=== PATIENT | male | born 1980 ===

== ENCOUNTER 2017-05-04 14:03 | Emergency (ER) | payer MEDICAID, OTHER ==
--- NOTE | 2017-05-04 14:27 | ED PDOC ---
Lower Extremity Pain/Injury Time Seen by Provider: 05/04/17 14:16 Chief Complaint (Nursing): Lower Extremity Problem/Injury Chief Complaint (Provider): left foot pain History Per: Patient History/Exam Limitations: no limitations Additional Complaint(s): 36yo M in ED for eval of left foot pain, swelling redness, warmth x 5days wroseing after getting a bug bite, itching an trying to squeeze lesion. noted ever today and some chills no nausea of vomiting. Past Medical History Reviewed: Historical Data, Nursing Documentation, Vital Signs Vital Signs: Last Vital Signs Temp 98.1 F 05/04/17 14:09 Pulse 119 H 05/04/17 14:09 Resp 19 05/04/17 14:09 BP 162/97 H 05/04/17 14:09 Pulse Ox 100 05/04/17 14:09 - Medical History PMH: No Chronic Diseases - Family History Family History: States: No Known Family Hx - Home Medications Home Medications: Ambulatory Orders Medication Instructions Recorded Cephalexin [cephalexin] 500 mg PO BID #20 cap 05/04/17 Clindamycin [Cleocin] 300 mg PO TID #30 cap 05/04/17 - Allergies Allergies/Adverse Reactions: Allergies Allergy/AdvReac Type Severity Reaction Status Date / Time No Known Allergies Allergy Verified 05/04/17 14:06 Review of Systems ROS Statement: Except As Marked, All Systems Reviewed And Found Negative Musculoskeletal: Positive for: Foot Pain Physical Exam - Reviewed Nursing Documentation Reviewed: Yes Vital Signs Reviewed: Yes - Physical Exam Appears: Positive for: Non-toxic, No Acute Distress Cardiovascular/Chest: Positive for: Regular Rate, Rhythm Respiratory: Positive for: CNT, Normal Breath Sounds Extremity: Positive for: Other (left foot: swelling to dorsum of foot, ertyhema warmth, streaking no pus drainage tenderness on palpaition. nuerovasc intact) Neurologic/Psych: Positive for: Alert, Oriented - Laboratory Results Result Diagrams: 05/04/17 14:36 05/04/17 14:36 - ECG O2 Sat by Pulse Oximetry: 100 - Radiology X-Ray: Interpreted by Ut X-Ray Interpretation: No Acute Disease - Progress ED Course And Treament: impression: cellulites will get labs, rocephin IV 1 gm , xray. 14:51 PT with elevated WBC, tachycardia-will order lactic acid/blood cx Medical Decision Making Medical Decision Making: Pt pain improved, CBC elevated however lactic acid is normal. HR and BP improved however temp increased will be given Tylenol. Pt does meet SERS criteria however pt looks well for d./cat this time with outpt f./u with pmd torodol given for pain. given Rocephin IV 1gm and will be d/c with clindamyin and keflex area is marked advised to have it monitored in 3 days if worsened to return to ED. or if with fever chills. advised to keep foot elevated allow better circulation. Disposition - Clinical Impression Clinical Impression: Cellulitis - Patient ED Disposition Is Patient to be Admitted: No Counseled Patient/Family Regarding: Studies Performed, Diagnosis, Need For Followup, Rx Given - Disposition Referrals: [facility] [Outside] Disposition: Routine/Home Disposition Time: 16:34 Condition: STABLE Prescriptions: Cephalexin [cephalexin] 500 mg PO BID #20 cap Clindamycin [Cleocin] 300 mg PO TID #30 cap Instructions: Cellulitis (ED) Forms: [facility] ED School/Work Excuse
[2017-05-04] MEDS ORDERED: cefTRIAXone (Rocephin) 1 gm Inj ONE (14:43)
[2017-05-04 14:45] LABS: BASO # 0.1 K/uL (0.0-0.2); BASO % 0.6 % (0.0-2.0); EOS # 0.1 K/uL (0.0-0.7); EOS % 0.7 % (0.0-4.0); HEMOGLOBIN 12.3 g/dL (12.0-18.0); LYMPH # 1.1 K/uL (1.0-4.3); LYMPH % 6.4 % (20.0-40.0); MEAN CELL VOLUME 92.5 fl (80.0-94.0); MEAN CORPUSCULAR HEMOGLOBIN 30.7 pg (27.0-31.0); MEAN CORPUSCULAR HGB CONC 33.2 g/dL (33.0-37.0); MEAN PLATELET VOLUME 7.8 fl (7.2-11.7); MONO # 1.1 K/uL (0.0-0.8); MONO % 6.5 % (0.0-10.0); NEUT # 14.1 K/uL (1.8-7.0); NEUT % 85.8 % (50.0-75.0); NRBC % 0.1 % (0.0-0.0); PLATELET COUNT 271 K/uL (130-400); RBC 4.02 Mil/uL (4.40-5.90); RED CELL DISTRIBUTION WIDTH 13.5 % (11.5-14.5); WHITE BLOOD COUNT 16.4 K/uL (4.8-10.8)
--- NOTE | 2017-05-04 14:50 | RAD ---
PROCEDURE: Left Foot Radiographs. HISTORY: foot swelling COMPARISON: None available. FINDINGS: BONES: No acute displaced fracture. JOINTS: No dislocation. SOFT TISSUES: Soft tissue swelling. No evidence of radiopaque foreign body. OTHER FINDINGS: None. IMPRESSION: Diffuse soft tissue swelling. No acute displaced fracture, dislocation, or significant joint effusion identified. If symptoms persist, or if there is continued clinical concern, x-ray follow-up in 7-10 days should be considered.
[2017-05-04 15:10] LABS: ALB/GLOB RATIO 1.2 (1.0-2.1); ALBUMIN 4.5 g/dL (3.5-5.0); ALT/SGPT 50 U/L (21-72); AST/SGOT 31 U/L (17-59); BLOOD UREA NITROGEN 17 mg/dl (9-20); CALCIUM 9.8 mg/dL (8.4-10.2); GFR AFRICAN-AMERICAN > 60; GFR NON-AFRICAN AMERICAN > 60
[2017-05-04 16:35] VITALS: BP 141/85; RESP 18
[2017-05-04 16:36] VITALS: O2SAT 100
[2017-05-04 16:52] LABS: BANDS 1 % (0-2); EOSINOPHIL 1 % (0-7); LYMPHOCYTE 7 % (20-50); MONOCYTE 7 % (0-10); NEUTROPHIL 84 % (42-75); PLATELET ESTIMATE NORMAL (NORMAL); TOTAL CELLS COUNTED 100
[2017-05-04 18:51] VITALS: PULSE 89; TEMP 98.5
== END 2017-05-04 18:50 | disposition home or self-care (01) ==
LOC: H.ER 14:03
DX: D72.829 Elevated white blood cell count, unspecified (principal); L03.115 Cellulitis of right lower limb
CPT/HCPCS: 73630; 80053; 83605; 85025; 87040; 96365; 96375; 99284; J0696; J1885

== ENCOUNTER 2017-05-07 05:48 | Inpatient (IN) | payer MEDICAID, OTHER ==
[2017-05-07] MEDS ORDERED: Piperacillin/Tazobact 3.375 GM in Sodium Chloride 0.9% 100 ML IV STA (06:29)
[2017-05-07] MEDS ORDERED: Piperacillin/Tazobact 3.375 gm Inj IVPB ONE (06:39)
[2017-05-07 06:42] LABS: BASO % 0.1 % (0.0-2.0); EOS # 0.5 K/uL (0.0-0.7); EOS % 3.9 % (0.0-4.0); HEMOGLOBIN 12.3 g/dL (12.0-18.0); LYMPH # 0.7 K/uL (1.0-4.3); LYMPH % 5.4 % (20.0-40.0); MEAN CELL VOLUME 92.1 fl (80.0-94.0); MEAN CORPUSCULAR HEMOGLOBIN 30.6 pg (27.0-31.0); MEAN CORPUSCULAR HGB CONC 33.2 g/dL (33.0-37.0); MEAN PLATELET VOLUME 7.8 fl (7.2-11.7); MONO # 0.8 K/uL (0.0-0.8); MONO % 6.2 % (0.0-10.0); NEUT # 10.6 K/uL (1.8-7.0); NEUT % 84.4 % (50.0-75.0); RBC 4.03 Mil/uL (4.40-5.90); RED CELL DISTRIBUTION WIDTH 13.5 % (11.5-14.5); WHITE BLOOD COUNT 12.6 K/uL (4.8-10.8)
--- NOTE | 2017-05-07 06:54 | ED PDOC ---
HPI: Wound Care - HPI Time Seen by Provider: 05/07/17 06:10 Chief Complaint (Nursing): Wound Check Chief Complaint (Provider): swelling and redness, left foot History Per: Patient History Of Present Illness: Mukesh is a 36 y/o male, with no past medical history who presents to the ED with complaints of left foot swelling and pain associated with redness. He was seen yesterday in ED and discharged on Kefflex and Clindamycin. Patient reports worsening symptoms, and has developed fever and chills, with swelling and redness increasing up the left leg. PMD: Unknown Exam Limitations: no limitations Onset/Duration Of Symptoms: Days (x 3) Current Symptoms Are (Timing): Still Present Past Medical History Reviewed: Historical Data, Nursing Documentation, Vital Signs Vital Signs: Last Vital Signs Temp 100.0 F H 05/07/17 06:07 Pulse 100 H 05/07/17 06:07 Resp 16 05/07/17 06:07 BP 142/70 05/07/17 06:07 Pulse Ox 98 05/07/17 06:07 - Medical History PMH: No Chronic Diseases - Surgical History Surgical History: No Surg Hx - Family History Family History: States: Unknown Family Hx - Social History Current smoker - smoking cessation education provided: No Alcohol: None Drugs: Denies - Home Medications Home Medications: Ambulatory Orders Medication Instructions Recorded Cephalexin [cephalexin] 500 mg PO BID #20 cap 05/04/17 Clindamycin [Cleocin] 300 mg PO TID #30 cap 05/04/17 - Allergies Allergies/Adverse Reactions: Allergies Allergy/AdvReac Type Severity Reaction Status Date / Time No Known Allergies Allergy Verified 05/04/17 14:06 Review of Systems ROS Statement: Except As Marked, All Systems Reviewed And Found Negative Constitutional: Positive for: Fever, Chills Musculoskeletal: Positive for: Foot Pain (Left foot) Skin: Positive for: Other (Swelling and redness of the left foot, spreading up leg) Physical Exam - Reviewed Nursing Documentation Reviewed: Yes Vital Signs Reviewed: Yes - Physical Exam Appears: Positive for: Non-toxic, No Acute Distress Head Exam: Positive for: ATRAUMATIC, NORMAL INSPECTION, NORMOCEPHALIC Skin: Positive for: Warm, Dry Eye Exam: Positive for: EOMI, Normal appearance, PERRL ENT: Positive for: Normal ENT Inspection Neck: Positive for: Normal, Painless ROM, Supple Cardiovascular/Chest: Positive for: Regular Rate, Rhythm. Negative for: Murmur Respiratory: Positive for: Normal Breath Sounds. Negative for: Accessory Muscle Use, Respiratory Distress Gastrointestinal/Abdominal: Positive for: Normal Exam, Soft. Negative for: Tenderness Back: Positive for: Normal Inspection. Negative for: Vertebral Tenderness Extremity: Positive for: Pedal Edema (Left foot), Swelling (Left foot is erythematous the dorsum, edematous, warm to touch, and indurated. Small vesicular lesion to the left just above the 3rd metatarsal surface. No drainage. ) Neurologic/Psych: Positive for: Alert, Oriented - Laboratory Results Result Diagrams: 05/07/17 06:39 - ECG O2 Sat by Pulse Oximetry: 98 (RA) Pulse Ox Interpretation: Normal Medical Decision Making Medical Decision Making: Time: 06:29 Initial Impression: 36 y/o male with left foot cellulitis and failure of outpatient treatment Initial Plan: --Labs --IV Vancomycin --Toradol 10 mg IV --Zosyn IV --Patient will be admitted as inpatient for further treatment of left foot cellulitis. Patient was discussed with Dr. Booker, Family Practice resident. Scribe Attestation: Documented by Cici Mota, acting as a scribe for Don Burton MD Provider Scribe Attestation: All medical record entries made by the Scribe were at my direction and personally dictated by me. I have reviewed the chart and agree that the record accurately reflects my personal performance of the history, physical exam, medical decision making, and the department course for this patient. I have also personally directed, reviewed, and agree with the discharge instructions and disposition. Disposition - Clinical Impression Clinical Impression: Cellulitis of left foot - Patient ED Disposition Is Patient to be Admitted: Yes Discussed With : Shoaib Booker - Disposition Disposition Time: 06:00 Condition: FAIR - Pt Status Changed To: Hospital Disposition Of: Inpatient - Admit Certification Admit to Inpatient:: After my assessment, the patient will require hospitalization for at least two midnights. This is because of the severity of symptoms shown, intensity of services needed, and/or the medical risk in this patient being treated as an outpatient.
[2017-05-07 06:59] LABS: ALB/GLOB RATIO 1.3 (1.0-2.1); ALBUMIN 4.3 g/dL (3.5-5.0); ALT/SGPT 184 U/L (21-72); AST/SGOT 91 U/L (17-59); BLOOD UREA NITROGEN 22 mg/dl (9-20); CALCIUM 9.5 mg/dL (8.4-10.2); GFR AFRICAN-AMERICAN > 60; GFR NON-AFRICAN AMERICAN > 60
[2017-05-07] MEDS ORDERED: Vancomycin 1 g Inj ONE (07:58)
[2017-05-07] MEDS ORDERED: Piperacill/Tazo 3.375gm in Dex 3.375 GM/50 ML BAG IVPB SCH (09:00)
--- NOTE | 2017-05-07 09:59 | CP.PCM.HP ---
History of Present Illness - History of Present Illness History of Present Illness: 36 yr old M with no significant PMHx presented to ER with worsening pain, swelling, and erythema to his L foot. Reports all symptoms began 6 days ago after he was bitten by a mosquito. He came to the ED 3 days ago and was treated for cellulitis with 1g of IV Cetriaxone and was discharge home with PO Clindamycin and Cephalexin. His symptoms continued to worsen despite compliance with PO antibiotics. Left foot x-ray was negative. Today, his pain is 10/10 with increased swelling and warmth. Pt also reports fever and chills with a decreased appetite. Denies abd pain, wound drainage, n/v/d. PMHx: Denies Surgical Hx: Appendectomy Social Hx: Admits to EtOH occasionally, denies smoking and illicit drugs. Lives at home with his Mother on the first floor. 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 Exercises 2x a week. FHx: Mother-none, Father-none, pt is an only child. Allergies: NKDA Medications: PO Clindamycin and Cephalexin ED Course: -VS: T-100.0F, HR-100, RR-16, BP-142/70, Pulse Ox-98 -CBC: WBC-12.6, rest wnl -Chem: BUN 22, AST 91, ALT, 184, rest wnl -Blood Cx Ordered -IV Vancomycin and IV Zosyn once, IV Toradol 10mg for pain Present on Admission - Present on Admission Any Indicators Present on Admission: No History of DVT/PE: No History of Uncontrolled Diabetes: No Urinary Catheter: No Decubitus Ulcer Present: No Review of Systems - Review of Systems All systems: reviewed and no additional remarkable complaints except (except for what is mentioned in the HPI) Past Patient History - Infectious Disease Hx of Infectious Diseases: None - Past Social History Smoking Status: Never Smoked - CARDIAC Hx Cardiac Disorders: No - PULMONARY Hx Respiratory Disorders: No - NEUROLOGICAL Hx Neurological Disorder: No - HEENT Hx HEENT Problems: No - RENAL Hx Chronic Kidney Disease: No - ENDOCRINE/METABOLIC Hx Endocrine Disorders: No - HEMATOLOGICAL/ONCOLOGICAL Hx Blood Disorders: No - INTEGUMENTARY Hx Dermatological Problems: No - MUSCULOSKELETAL/RHEUMATOLOGICAL Hx Musculoskeletal Disorders: No - GENITOURINARY/GYNECOLOGICAL Hx Genitourinary Disorders: No - PSYCHIATRIC Hx Psychophysiologic Disorder: No - SURGICAL HISTORY Hx Surgeries: Yes Hx Angioplasty: No Hx Appendectomy: Yes - ANESTHESIA Hx Anesthesia: Yes Hx Anesthesia Reactions: No Meds Allergies/Adverse Reactions: Allergies Allergy/AdvReac Type Severity Reaction Status Date / Time No Known Allergies Allergy Verified 05/04/17 14:06 Physical Exam - Constitutional Appears: No Acute Distress - Head Exam Head Exam: ATRAUMATIC, NORMOCEPHALIC - Eye Exam Eye Exam: EOMI - ENT Exam ENT Exam: Mucous Membranes Moist - Neck Exam Neck exam: Positive for: Full Rom. Negative for: Lymphadenopathy - Respiratory Exam Respiratory Exam: Clear to Auscultation Bilateral, NORMAL BREATHING PATTERN - Cardiovascular Exam Cardiovascular Exam: REGULAR RHYTHM, +S1, +S2 - GI/Abdominal Exam GI & Abdominal Exam: Normal Bowel Sounds, Soft (obese). absent: Tenderness - Extremities Exam Extremities exam: Positive for: tenderness (to palpation and passive movement and significant erythema of left foot along dorsal aspect from 4th digit base and extending proximally up to ankle, pinpoint lesion at dorsal base of 4th digit with eschar), pedal pulses present Additional comments: sensation normal and equal bilaterally - Back Exam Back exam: FULL ROM. absent: CVA tenderness (L), CVA tenderness (R) - Neurological Exam Neurological exam: Alert, CN II-XII Intact - Psychiatric Exam Psychiatric exam: Normal Affect, Normal Mood - Skin Skin Exam: Dry, Intact Results - Vital Signs Recent Vital Signs: Last Vital Signs Temp 98.5 F 05/07/17 09:16 Pulse 95 H 05/07/17 09:16 Resp 16 05/07/17 09:16 BP 135/77 05/07/17 09:16 Pulse Ox 98 05/07/17 09:16 - Labs Result Diagrams: 05/07/17 06:39 05/07/17 06:39 Labs: Laboratory Results - last 24 hr 05/07/17 05/07/17 05/07/17 06:39 06:39 06:39 WBC 12.6 H RBC 4.03 L Hgb 12.3 Hct 37.1 MCV 92.1 MCH 30.6 MCHC 33.2 RDW 13.5 Plt Count 290 MPV 7.8 Neut % (Auto) 84.4 H Lymph % (Auto) 5.4 L Kemper % (Auto) 6.2 Eos % (Auto) 3.9 Baso % (Auto) 0.1 Neut # 10.6 H Lymph # 0.7 L Kemper # 0.8 Eos # 0.5 Baso # 0.0 Sodium 140 Potassium 3.9 Chloride 105 Carbon Dioxide 24 Anion Gap 15 BUN 22 H Creatinine 1.1 Est GFR ( Amer) > 60 Est GFR (Non-Af Amer) > 60 Random Glucose 103 Lactic Acid 0.7 Calcium 9.5 Total Bilirubin 0.8 AST 91 H D ALT 184 H D Alkaline Phosphatase 114 Total Protein 7.7 Albumin 4.3 Globulin 3.4 Albumin/Globulin Ratio 1.3 Assessment & Plan - Assessment and Plan (Free Text) Assessment: 36 yr old M admitted for worsening LLE cellulitis s/p failed outpatient PO antibiotics, with no other significant PMHx. Podiatry and ID are on board. I&D performed, Wound culture results are pending. LLE Cellulitis -worsened s/p failed PO antibiotics as outpatient -afebrile, leukocytosis of 12.6 -Podiatry consult appreciated-Dr. Calderon: I&D performed, wound culture sent -Day 1 of Vancomycin 1gm IV Q12H and Zosyn 3.375gm IV Q12H -pain management Tylenol (mild pain), Toradol (moderate), Morphine (severe) -regular diet -f/u CBC, Lyme disease labs, BCx, Wound Cx Elevated LFT's -acute -f/u LFT's, Utox DVT prophylaxis -Lovenox 40mg SC QD - Date & Time Date: 05/07/17 Time: 09:00
[2017-05-07 10:58] LABS: INR 1.2 (0.9-1.2); PROTHROMBIN TIME 13.5 Seconds (9.8-13.1)
--- NOTE | 2017-05-07 11:09 | US ---
HISTORY: r/o DVT . PRIORS: None. FINDINGS: 2-D, color and duplex Doppler analysis of the lower extremity venous circulation using routine protocol from the femoral veins through the popliteal veins. Venous compressibility: Normal. Flow and augmentation patterns: Normal. Visualized veins upper third of calf: Normal. Kapoor cyst: None. IMPRESSION: No sonographic or Doppler evidence for DVT in left lower extremity.
[2017-05-07] MEDS: Enoxaparin 40 mg Syringe SC SCH (11:50)
--- NOTE | 2017-05-07 12:39 | CP.PCM.CON ---
History of Present Illness - History of Present Illness History of Present Illness: 36 y/o male, with no past medical history who presents to the ED with complaints of left foot swelling and pain associated with redness. He was seen yesterday in ED and discharged on Kefflex and Clindamycin. Patient reports worsening symptoms, and has developed fever and chills, with swelling and redness increasing up the left leg. Could not get appointment at podiatry clinic Review of Systems - Review of Systems All systems: reviewed and no additional remarkable complaints except - Constitutional Constitutional: Chills, Fever - EENT Eyes: absent: As Per HPI, Blind Spots, Blurred Vision, Change in Vision, Decreased Night Vision, Diplopia, Discharge, Dry Eye, Exophthalmos, Floaters, Irritation, Itchy Eyes, Loss of Peripheral Vision, Pain, Photophobia, Requires Corrective Lenses, Sees Flashes, Spots in Vision, Tunnel Vision, Other Visual Disturbances, Loss of Vision, Other Ears: absent: As Per HPI, Decreased Hearing, Ear Discharge, Ear Pain, Tinnitus, Abnormal Hearing, Disequilibrium, Dizziness, Other Nose/Mouth/Throat: absent: As Per HPI, Epistaxis, Nasal Congestion, Nasal Discharge, Nasal Obstruction, Nasal Trauma, Nose Pain, Post Nasal Drip, Sinus Pain, Sinus Pressure, Bleeding Gums, Change in Voice, Dental Pain, Dry Mouth, Dysphagia, Halitosis, Hoarsness, Lip Swelling, Mouth Lesions, Mouth Pain, Odynophagia, Sore Throat, Throat Swelling, Tongue Swelling, Facial Pain, Neck Pain, Neck Mass, Other - Cardiovascular Cardiovascular: absent: As Per HPI, Acrocyanosis, Chest Pain, Chest Pain at Rest , Chest Pain with Activity, Claudication, Diaphoresis, Dyspnea, Dyspnea on Exertion, Edema, Irregular Heart Rhythm, Pain Radiating to Arm/Neck/Jaw, Leg Edema, Leg Ulcers, Lightheadedness, Orthopnea, Palpitations, Paroxysmal Nocturnal Dyspnea, Pedal Edema, Radiating Pain, Rapid Heart Rate, Slow Heart Rate, Syncope, Other - Respiratory Respiratory: absent: As Per HPI, Cough, Dyspnea, Hemoptysis, Dyspnea on Exertion , Wheezing, Snoring, Stridor, Pain on Inspiration, Chest Congestion, Excessive Mucous Production, Change in Mucous Color, Pain with Coughing, Other - Gastrointestinal Gastrointestinal: absent: As Per HPI, Abdominal Pain, Belching, Bloating, Change in Bowel Habits, Change in Stool Character, Coffee Ground Emesis, Constipation, Cramping, Diarrhea, Dyspepsia, Dysphagia, Early Satiety, Excessive Flatus, Fecal Incontinence, Heartburn, Hematemesis, Hematochezia, Loose Stools, Melena, Nausea, Odynophagia, Temesmus, Vomiting, Other - Genitourinary Genitourinary: absent: As Per HPI, Change in Urinary Stream, Difficulty Urinating, Dysuria, Flank Pain, Hematuria, Pyuria, Nocturia, Urinary Incontinence, Urinary Frequency, Urinary Hesitance, Urinary Urgency, Voiding Freq/Small Amts, Freq UTI, Hx Renal/Bladder Calculi, Hx /Renal Surgery, Bladder Distension, Other - Musculoskeletal Musculoskeletal: absent: As Per HPI, Abnormal Gait, Arthralgias, Atrophy, Back Pain, Deformity, Joint Swelling, Limited Range of Motion, Loss of Height, Muscle Cramps, Muscle Weakness, Myalgias, Neck Pain, Numbness, Radiating Pain into Limb, Stiffness, Tingling, Other - Integumentary Integumentary: As Per HPI, Rash, Skin Pain, Wounds - Neurological Neurological: absent: As Per HPI, Abnormal Gait, Abnormal Hearing, Abnormal Movements, Abnormal Speech, Behavioral Changes, Burning Sensations, Confusion, Convulsions, Disequilibrium, Dizziness, Numbness, Focal Weakness, Frequent Falls , Headaches, Lack of Coordination, Loss of Vision, Memory Loss, Paresthesias, Radicular Pain, Restless Legs, Sensory Deficit, Syncope, Tingling, Tremor, Vertigo, Weakness, Other Visual Disturbances, Other - Psychiatric Psychiatric: absent: As Per HPI, Abnormal Sleep Pattern, Anhedonia, Anxiety, Auditory Hallucinations, Behavioral Changes, Change in Appetite, Change in Libido, Confusion, Depression, Difficulty Concentrating, Hallucinations, Homicidal Ideation, Hopelessness, Irritability, Memory Loss, Mood Swings, Panic Attacks, Paranoia, Suicidal Ideation, Visual Hallucinations, Tactile Hallucinations, Other - Endocrine Endocrine: absent: As Per HPI, Change in Body Appearance, Change in Libido, Cold Intolorance, Deepening of Voice, Excessive Sweating, Fatigue, Flushing, Heat Intolorance, Increase in Ring/Shoe/Hat Size, Palpitations, Polydipsia, Polyphagia, Polyuria, Other - Hematologic/Lymphatic Hematologic: absent: As Per HPI, Easy Bleeding, Easy Bruising, Lymphadenopathy, Other Past Patient History - Infectious Disease Hx of Infectious Diseases: None - Past Social History Smoking Status: Never Smoked - CARDIAC Hx Cardiac Disorders: No - PULMONARY Hx Respiratory Disorders: No - NEUROLOGICAL Hx Neurological Disorder: No - HEENT Hx HEENT Problems: No - RENAL Hx Chronic Kidney Disease: No - ENDOCRINE/METABOLIC Hx Endocrine Disorders: No - HEMATOLOGICAL/ONCOLOGICAL Hx Blood Disorders: No - INTEGUMENTARY Hx Dermatological Problems: No - MUSCULOSKELETAL/RHEUMATOLOGICAL Hx Musculoskeletal Disorders: No - GENITOURINARY/GYNECOLOGICAL Hx Genitourinary Disorders: No - PSYCHIATRIC Hx Psychophysiologic Disorder: No - SURGICAL HISTORY Hx Surgeries: Yes Hx Angioplasty: No Hx Appendectomy: Yes - ANESTHESIA Hx Anesthesia: Yes Hx Anesthesia Reactions: No Meds Allergies/Adverse Reactions: Allergies Allergy/AdvReac Type Severity Reaction Status Date / Time No Known Allergies Allergy Verified 05/04/17 14:06 - Medications Medications: Current Medications Enoxaparin Sodium (Lovenox) 40 mg SC DAILY [facility] PRN Reason: Protocol Last Admin: 05/07/17 11:50 Dose: 40 mg Piperacillin Sod/Tazobactam Sod (Zosyn 3.375 Gm Iv Premix) 3.375 gm in 50 mls @ 50 mls/hr IVPB Q12 [facility] Last Admin: 05/07/17 08:22 Dose: Not Given Vancomycin HCl 1 gm/ Sodium (Chloride) 250 mls @ 166.667 mls/hr IVPB Q12 [facility] Last Admin: 05/07/17 08:27 Dose: Not Given Physical Exam - Constitutional Appears: Non-toxic, Chronically Ill - Head Exam Head Exam: NORMOCEPHALIC - Eye Exam Eye Exam: PERRL. absent: Scleral icterus - ENT Exam ENT Exam: Mucous Membranes Dry, Normal External Ear Exam - Neck Exam Neck exam: Negative for: Lymphadenopathy - Respiratory Exam Respiratory Exam: Decreased Breath Sounds, Clear to Auscultation Bilateral - Cardiovascular Exam Cardiovascular Exam: REGULAR RHYTHM, +S1, +S2 - GI/Abdominal Exam GI & Abdominal Exam: Diminished Bowel Sounds, Soft. absent: Tenderness - Rectal Exam Rectal Exam: Deferred - Exam Exam: NORMAL INSPECTION - Extremities Exam Extremities exam: Positive for: pedal edema, tenderness, pedal pulses present. Negative for: calf tenderness Additional comments: redness and swelling dorsum left foot from toes to forefoot- worse on lateral aspect - Back Exam Back exam: absent: CVA tenderness (L), CVA tenderness (R), paraspinal tenderness - Neurological Exam Neurological exam: Alert, CN II-XII Intact, Oriented x3, Reflexes Normal - Psychiatric Exam Psychiatric exam: Normal Mood - Skin Skin Exam: Dry Results - Vital Signs Recent Vital Signs: Last Vital Signs Temp 98.8 F 05/07/17 09:45 Pulse 96 H 05/07/17 09:45 Resp 18 05/07/17 09:45 BP 139/85 05/07/17 09:45 Pulse Ox 100 05/07/17 09:45 - Labs Result Diagrams: 05/07/17 06:39 05/07/17 06:39 Labs: Laboratory Results - last 24 hr 05/07/17 05/07/17 05/07/17 06:39 06:39 06:39 WBC 12.6 H RBC 4.03 L Hgb 12.3 Hct 37.1 MCV 92.1 MCH 30.6 MCHC 33.2 RDW 13.5 Plt Count 290 MPV 7.8 Neut % (Auto) 84.4 H Lymph % (Auto) 5.4 L Buchanan % (Auto) 6.2 Eos % (Auto) 3.9 Baso % (Auto) 0.1 Neut # 10.6 H Lymph # 0.7 L Buchanan # 0.8 Eos # 0.5 Baso # 0.0 PT INR APTT Sodium 140 Potassium 3.9 Chloride 105 Carbon Dioxide 24 Anion Gap 15 BUN 22 H Creatinine 1.1 Est GFR ( Amer) > 60 Est GFR (Non-Af Amer) > 60 Random Glucose 103 Lactic Acid 0.7 Calcium 9.5 Total Bilirubin 0.8 AST 91 H D ALT 184 H D Alkaline Phosphatase 114 Total Protein 7.7 Albumin 4.3 Globulin 3.4 Albumin/Globulin Ratio 1.3 05/07/17 05/07/17 09:00 10:25 WBC RBC Hgb Hct MCV MCH MCHC RDW Plt Count MPV Neut % (Auto) Lymph % (Auto) Buchanan % (Auto) Eos % (Auto) Baso % (Auto) Neut # Lymph # Buchanan # Eos # Baso # PT 13.5 H INR 1.2 APTT 32.0 Sodium Potassium Chloride Carbon Dioxide Anion Gap BUN Creatinine Est GFR ( Amer) Est GFR (Non-Af Amer) Random Glucose Lactic Acid Calcium Total Bilirubin AST ALT Alkaline Phosphatase Total Protein Albumin Globulin Albumin/Globulin Ratio Assessment & Plan (1) Failure of outpatient treatment Status: Acute (2) Failure of outpatient treatment Status: Acute (3) Cellulitis of left foot Status: Acute (4) Cellulitis Status: Acute - Assessment and Plan (Free Text) Assessment: cont iv vanco po zyvox an option if pt can get coverage may need I and d if abscess forms
--- NOTE | 2017-05-07 13:51 | CP.PCM.CON ---
History of Present Illness - History of Present Illness History of Present Illness: 36 year old male patient seen at bedside, consulted podiatry for left foot pain and redness. Patient states that on he was walking his dog and believes a mosquito bit him. Patient states that soon after he started developing pain to his left foot, and took extra strength Tylenol to alleviate the pain. Patient went to the ED 3 days ago and was discharged on Keflex and Clindamycin. Patient reports worsening pain and swelling to his foot and believes the antibiotics did not improve the problem in his foot. Patient rates the pain as 10/10 on the pain scale, and states his foot is extremely sensitive to touch. Patient admits to feeling feverish and having chills. Patient denies N /V/D/SOB. No other pedal complaints at this time. PMH: unremarkable PSH: none Meds: extra strength Tylenol All: NKDA FH: non-contributory SH: occasional ETOH Review of Systems - Review of Systems All systems: reviewed and no additional remarkable complaints except (as per HPI ) Past Patient History - Infectious Disease Hx of Infectious Diseases: None - Past Social History Smoking Status: Never Smoked - CARDIAC Hx Cardiac Disorders: No - PULMONARY Hx Respiratory Disorders: No - NEUROLOGICAL Hx Neurological Disorder: No - HEENT Hx HEENT Problems: No - RENAL Hx Chronic Kidney Disease: No - ENDOCRINE/METABOLIC Hx Endocrine Disorders: No - HEMATOLOGICAL/ONCOLOGICAL Hx Blood Disorders: No - INTEGUMENTARY Hx Dermatological Problems: No - MUSCULOSKELETAL/RHEUMATOLOGICAL Hx Musculoskeletal Disorders: No - GENITOURINARY/GYNECOLOGICAL Hx Genitourinary Disorders: No - PSYCHIATRIC Hx Psychophysiologic Disorder: No - SURGICAL HISTORY Hx Surgeries: Yes Hx Angioplasty: No Hx Appendectomy: Yes - ANESTHESIA Hx Anesthesia: Yes Hx Anesthesia Reactions: No Meds Allergies/Adverse Reactions: Allergies Allergy/AdvReac Type Severity Reaction Status Date / Time No Known Allergies Allergy Verified 05/04/17 14:06 - Medications Medications: Current Medications Enoxaparin Sodium (Lovenox) 40 mg SC DAILY [facility] PRN Reason: Protocol Last Admin: 05/07/17 11:50 Dose: 40 mg Piperacillin Sod/Tazobactam Sod (Zosyn 3.375 Gm Iv Premix) 3.375 gm in 50 mls @ 50 mls/hr IVPB Q12 [facility] Last Admin: 05/07/17 08:22 Dose: Not Given Vancomycin HCl 1 gm/ Sodium (Chloride) 250 mls @ 166.667 mls/hr IVPB Q12 [facility] Last Admin: 05/07/17 08:27 Dose: Not Given Physical Exam - Constitutional Appears: Well, Non-toxic, No Acute Distress - Extremities Exam Additional comments: Vasc: DP and PT pulses palpable 2/4 b/l. CFT <3 seconds to all digits x10. TG warm to warm to RLE, warm to hot to LLE. Increase in warmth to dorsolateral left foot and 4th digit. Neuro: Gross sensation intact. Derm: Erythema noted dorsal and lateral aspects of left foot. Red-purple discoloration noted to base of 4th digit, and area of discoloration is noted to be fluctuant. Pinpoint lesion with eschar noted to dorsal 4th digit base with surrounding hyperkeratosis. Ortho: Pain on palpation noted to dorsolateral left foot. Pain upon ROM 4th digit. - Neurological Exam Neurological exam: Alert, Oriented x3 - Psychiatric Exam Psychiatric exam: Normal Affect, Normal Mood Results - Vital Signs Recent Vital Signs: Last Vital Signs Temp 98.8 F 05/07/17 09:45 Pulse 96 H 05/07/17 09:45 Resp 18 05/07/17 09:45 BP 139/85 05/07/17 09:45 Pulse Ox 100 05/07/17 09:45 - Labs Result Diagrams: 05/07/17 06:39 05/07/17 06:39 Labs: Laboratory Results - last 24 hr 05/07/17 05/07/17 05/07/17 06:39 06:39 06:39 WBC 12.6 H RBC 4.03 L Hgb 12.3 Hct 37.1 MCV 92.1 MCH 30.6 MCHC 33.2 RDW 13.5 Plt Count 290 MPV 7.8 Neut % (Auto) 84.4 H Lymph % (Auto) 5.4 L [place] % (Auto) 6.2 Eos % (Auto) 3.9 Baso % (Auto) 0.1 Neut # 10.6 H Lymph # 0.7 L [place] # 0.8 Eos # 0.5 Baso # 0.0 PT INR APTT Sodium 140 Potassium 3.9 Chloride 105 Carbon Dioxide 24 Anion Gap 15 BUN 22 H Creatinine 1.1 Est GFR ( Amer) > 60 Est GFR (Non-Af Amer) > 60 Random Glucose 103 Lactic Acid 0.7 Calcium 9.5 Total Bilirubin 0.8 AST 91 H D ALT 184 H D Alkaline Phosphatase 114 Total Protein 7.7 Albumin 4.3 Globulin 3.4 Albumin/Globulin Ratio 1.3 05/07/17 05/07/17 09:00 10:25 WBC RBC Hgb Hct MCV MCH MCHC RDW Plt Count MPV Neut % (Auto) Lymph % (Auto) [place] % (Auto) Eos % (Auto) Baso % (Auto) Neut # Lymph # [place] # Eos # Baso # PT 13.5 H INR 1.2 APTT 32.0 Sodium Potassium Chloride Carbon Dioxide Anion Gap BUN Creatinine Est GFR ( Amer) Est GFR (Non-Af Amer) Random Glucose Lactic Acid Calcium Total Bilirubin AST ALT Alkaline Phosphatase Total Protein Albumin Globulin Albumin/Globulin Ratio Assessment & Plan - Assessment and Plan (Free Text) Assessment: 36 year old male with cellulitis and abscess secondary to bug bite Plan: Patient seen and evaluated at bedside. Discussed with attending, Dr. Calderon. Charts, labs, vitals reviewed = afebrile, WBC leukocytosis @ 12.6. Bedside I & D was performed - 5cc 1% lidocaine injected into left foot. Using a #15 blade, a 0.5 cm incision was made at pinpoint lesion. Approximtely 7cc of purulence was expressed from incision. Wound cx ordered and taken. Left foot dressed with 4x4 and kerlix. Per ID, patient to continue IV vancomycin. Continue pain mgmt per medicine. Podiatry will continue to follow while in house. - Date & Time Date: 05/07/17 Time: 17:00
[2017-05-07] MEDS ORDERED: Lidocaine 1% Inj (20ml) IJ ONE (16:11)
[2017-05-07] MEDS: Piperacill/Tazo 3.375gm in Dex 3.375 GM/50 ML BAG IVPB SCH (17:19)
[2017-05-07 22:31] LABS: HEPATITIS B SURFACE AG NEGATIVE (NEGATIVE)
[2017-05-07 22:36] LABS: HEPATITIS A IGM NEGATIVE (NEGATIVE); HEPATITIS B CORE AB NEGATIVE (NEGATIVE)
[2017-05-07 22:48] LABS: HEPATITIS C ANTIBODY NEGATIVE (NEGATIVE)
[2017-05-08 01:20] LABS: SQUAMOUS EPITHIAL < 1 /hpf (0-5); URINE BILIRUBIN NEGATIVE (NEGATIVE); URINE BLOOD NEGATIVE (NEGATIVE); URINE CLARITY CLEAR (Clear); URINE COLOR YELLOW (YELLOW); URINE GLUCOSE (UA) NEG (Normal); URINE LEUKOCYTE ESTERASE TRACE Leu/uL (Negative); URINE NITRATE NEGATIVE (NEGATIVE); URINE PROTEIN NEGATIVE (NEGATIVE); URINE UROBILINOGEN 0.2-1.0 mg/dL (0.2-1.0)
[2017-05-08 02:51] LABS: BARBITURATES, UR NEGATIVE (NEGATIVE); BENZODIAZEPINES, UR NEGATIVE (NEGATIVE); OPIATES, UR NEGATIVE (NEGATIVE); PHENCYCLIDINE, UR NEGATIVE (NEGATIVE)
[2017-05-08] MEDS: Piperacill/Tazo 3.375gm in Dex 3.375 GM/50 ML BAG IVPB SCH ×2 (06:02→18:38)
[2017-05-08 07:37] LABS: HEMOGLOBIN 11.4 g/dL (12.0-18.0); MEAN CELL VOLUME 92.2 fl (80.0-94.0); MEAN CORPUSCULAR HGB CONC 32.6 g/dL (33.0-37.0); RBC 3.79 Mil/uL (4.40-5.90); RED CELL DISTRIBUTION WIDTH 13.4 % (11.5-14.5); WHITE BLOOD COUNT 12.7 K/uL (4.8-10.8)
[2017-05-08 07:46] LABS: ALB/GLOB RATIO 1.2 (1.0-2.1); ALBUMIN 3.8 g/dL (3.5-5.0); ALT/SGPT 158 U/L (21-72); AST/SGOT 59 U/L (17-59); BLOOD UREA NITROGEN 21 mg/dl (9-20); CALCIUM 9.2 mg/dL (8.4-10.2); GFR AFRICAN-AMERICAN > 60; GFR NON-AFRICAN AMERICAN > 60
--- NOTE | 2017-05-08 08:25 | CP.PCM.PN ---
Subjective - Date & Time of Evaluation Date of Evaluation: 05/08/17 Time of Evaluation: 07:10 - Subjective Subjective: 36 year old male patient seen at bedside for left foot pain, redness, and swelling. Patient seen resting in bed comfortably, AAOx3 and NAD. Patient denies any acute events overnight. Patient reports continued pain to his left foot however decreased from yesterday. Patient states the I&D yesterday helped alleviate some pain. Patient denies any fever or chills today. Patient denies N/ V/D/SOB. No other pedal complaints at this time. Objective - Vital Signs/Intake and Output Vital Signs (last 24 hours): Temp Pulse Resp BP Pulse Ox 98.6 F 80 18 127/79 98 05/08/17 08:15 05/08/17 08:15 05/08/17 08:15 05/08/17 08:15 05/08/17 08:15 - Medications Medications: Current Medications Acetaminophen (Tylenol 325mg Tab) 650 mg PO Q6 PRN PRN Reason: Pain, Mild (1-3) Enoxaparin Sodium (Lovenox) 40 mg SC DAILY [facility] PRN Reason: Protocol Last Admin: 05/07/17 11:50 Dose: 40 mg Vancomycin HCl 1 gm/ Sodium (Chloride) 250 mls @ 166.667 mls/hr IVPB Q12 [facility] Last Admin: 05/07/17 21:38 Dose: 166.667 mls/hr Piperacillin Sod/Tazobactam Sod (Zosyn 3.375 Gm Iv Premix) 3.375 gm in 50 mls @ 50 mls/hr IVPB Q12H [facility] Last Admin: 05/08/17 06:02 Dose: 50 mls/hr Ketorolac Tromethamine (Toradol) 30 mg IVP Q6 PRN PRN Reason: Pain, moderate (4-7) Morphine Sulfate (Morphine) 2 mg IVP Q6 PRN PRN Reason: Pain, severe (8-10) - Labs Labs: 05/08/17 06:00 05/08/17 06:00 PT 13.5 Seconds (9.8-13.1) H 05/07/17 10:25 INR 1.2 (0.9-1.2) 05/07/17 10:25 APTT 32.0 Seconds (25.6-37.1) 05/07/17 09:00 - Constitutional Appears: Well, Non-toxic, No Acute Distress - Extremities Exam Additional comments: LLE focused physical exam: Vasc: DP and PT pulses palpable 2/4. CFT <3 seconds to all digits x5. TG warm to hot to LLE. Increase in warmth to dorsolateral left foot and 4th digit. Neuro: Gross sensation intact. Derm: Erythema noted dorsal and lateral aspects of left foot, resolving. Red- purple discoloration noted to base of 4th digit, and area of discoloration is noted to be fluctuant however less fluctuant than yesterday. 0.5cm incision to base of 4th digit appears to be healing well, no wound dehiscence noted. Ortho: Pain on palpation noted to dorsolateral left foot, decreased since yesterday. Pain upon ROM 4th digit. - Neurological Exam Neurological Exam: Alert, Awake, Oriented x3 - Psychiatric Exam Psychiatric exam: Normal Affect, Normal Mood Assessment and Plan - Assessment and Plan (Free Text) Assessment: 36 year old male with cellulitis and abscess secondary to bug bite Plan: Patient seen and evaluated at bedside. Discussed with attending, Dr. Calderon. Charts, labs, vitals reviewed = afebrile, WBC leukocytosis @ 12.7 (slightly increased from yesterday @ 12.6 05/07/17). F/U left foot wound culture Left foot MRI ordered Left foot dressed with 4x4 and kerlix. Per ID, patient to continue IV vancomycin. Continue pain mgmt per medicine = Tylenol, Toradol, Morphine Podiatry will continue to follow while in house.
[2017-05-08] MEDS: Enoxaparin 40 mg Syringe SC SCH (08:58)
--- NOTE | 2017-05-08 10:27 | CP.PCM.PN ---
Subjective - Date & Time of Evaluation Date of Evaluation: 05/08/17 Time of Evaluation: 07:25 - Subjective Subjective: Patient seen and examined at bedside. No acute events overnight. Reports LLE pain has mildly improved. Denies fevers, chills, nausea or headaches. Tolerating PO diet. Has normal urine and stool output. Objective - Vital Signs/Intake and Output Vital Signs (last 24 hours): Temp Pulse Resp BP Pulse Ox 98.6 F 80 18 127/79 98 05/08/17 08:15 05/08/17 08:15 05/08/17 08:15 05/08/17 08:15 05/08/17 08:15 - Medications Medications: Current Medications Acetaminophen (Tylenol 325mg Tab) 650 mg PO Q6 PRN PRN Reason: Pain, Mild (1-3) Enoxaparin Sodium (Lovenox) 40 mg SC DAILY [facility] PRN Reason: Protocol Last Admin: 05/08/17 08:58 Dose: 40 mg Vancomycin HCl 1 gm/ Sodium (Chloride) 250 mls @ 166.667 mls/hr IVPB Q12 [facility] Last Admin: 05/07/17 21:38 Dose: 166.667 mls/hr Piperacillin Sod/Tazobactam Sod (Zosyn 3.375 Gm Iv Premix) 3.375 gm in 50 mls @ 50 mls/hr IVPB Q12H [facility] Last Admin: 05/08/17 06:02 Dose: 50 mls/hr Ketorolac Tromethamine (Toradol) 30 mg IVP Q6 PRN PRN Reason: Pain, moderate (4-7) Morphine Sulfate (Morphine) 2 mg IVP Q6 PRN PRN Reason: Pain, severe (8-10) - Labs Labs: 05/08/17 06:00 05/08/17 06:00 PT 13.5 Seconds (9.8-13.1) H 05/07/17 10:25 INR 1.2 (0.9-1.2) 05/07/17 10:25 APTT 32.0 Seconds (25.6-37.1) 05/07/17 09:00 - Constitutional Appears: Non-toxic - Head Exam Head Exam: ATRAUMATIC, NORMOCEPHALIC - Eye Exam Eye Exam: EOMI - ENT Exam ENT Exam: Mucous Membranes Moist - Neck Exam Neck Exam: Full ROM. absent: Lymphadenopathy - Respiratory Exam Respiratory Exam: Clear to Ausculation Bilateral, NORMAL BREATHING PATTERN - Cardiovascular Exam Cardiovascular Exam: REGULAR RHYTHM, +S1, +S2 - GI/Abdominal Exam GI & Abdominal Exam: Soft (obese), Normal Bowel Sounds. absent: Tenderness - Extremities Exam Extremities Exam: Normal Capillary Refill, Tenderness (improved to palpation and passive movement and decreased swelling and erythema of left foot along dorsal aspect from 4th digit base and decreased extension proximally up to talus region, small incision healing well at base of 4th digit dorsally, no drainage) Additional comments: sensation normal and equal bilaterally, decreased warmth of left foot - Back Exam Back Exam: absent: CVA tenderness (L), CVA tenderness (R) - Neurological Exam Neurological Exam: Alert, Awake, CN II-XII Intact, Oriented x3 - Psychiatric Exam Psychiatric exam: Normal Affect, Normal Mood - Skin Skin Exam: Dry, Warm Assessment and Plan - Assessment and Plan (Free Text) Assessment: 36 yr old M admitted for worsening LLE cellulitis s/p failed outpatient PO antibiotics, with no other significant PMHx. Podiatry and ID are on board. I&D performed, Wound culture results are pending. Patient is improving, swelling and erythema persist but have decreased. Afebrile overnight. LLE Cellulitis -worsened s/p failed PO antibiotics as outpatient -afebrile, leukocytosis persists 12.7 -Podiatry consult appreciated-Dr. Calderon: I&D performed, wound culture sent -Day 2 of Vancomycin 1gm IV Q12H and Zosyn 3.375gm IV Q12H -Vanco trough 8.0 this AM -ID consulted-Dr. Bailey: will follow recommendations -pain management Tylenol (mild pain), Toradol (moderate), Morphine (severe) -regular diet - Lyme disease screen negative, Hep panel negative, BCx negative x 24hrs, Wound Cx rare G+ cocci:further analysis pending -f/u Left foot xray Elevated LFT -acute, improving, AST wnl, ALT 158 - monitor Cannabis use -UTox positive for cannabinoids -patient counseled against cannabinoid/drug use DVT prophylaxis -Lovenox 40mg SC QD
--- NOTE | 2017-05-08 12:24 | RAD ---
PROCEDURE: Left Foot Radiographs. HISTORY: LLE pain, cellulitis COMPARISON: None. FINDINGS: BONES: Normal. No fracture. JOINTS: Normal. SOFT TISSUES: Normal. OTHER FINDINGS: None. IMPRESSION: Normal left foot radiographs.
--- NOTE | 2017-05-08 14:33 | PQF GENQUE ---
Dr. Alejandro Bergman, Is there an associated diagnosis to go along with the following labs and V/S: WBC:12.6->12.7 left shift temperature :100->100->98.5 pulse:100->100->95->96->90 H and P: presented to ER with worsening pain, swelling, and erythema to his L foot. Reports all symptoms began 6 days ago after he was bitten by a mosquito. He came to the ED 3 days ago and was treated for cellulitis with 1g of IV Cetriaxone and was discharge home with PO Clindamycin and Cephalexin. His symptoms continued to worsen despite compliance with PO antibiotics. Left foot x -ray was negative. Today, his pain is 10/10 with increased swelling and warmth. Pt also reports fever and chills with a decreased appetite Admitted for worsening LLE cellulitis s/p failed outpatient PO antibiotics, with no other significant PMHx. Podiatry and ID are on board. I D performed, Wound culture results are pending. Impression: LLE Cellulitis -worsened s/p failed PO antibiotics as outpatient - afebrile, leukocytosis of 12.6 -Podiatry consult appreciated-Dr. Calderon: I D performed, wound culture sent - Day 1 of Vancomycin 1gm IV Q12H and Zosyn 3.375gm IV Q12H -pain management Tylenol (mild pain), Toradol (moderate), Morphine (severe) -regular diet -f/u CBC, Lyme disease labs, BCx, Wound Cx This form is a permanent part of the medical record Clarification of your documentation is requested to better reflect the severity of illness and intensity of treatment of your patient. Indicators present [] Specify: [] [] Specify: [] [] Specify: [] [] Specify: [] Location in the medical record that reflects the above clinical findings: [] Treatment Provided: [] PHYSICIAN'S RESPONSE pt has cellulitis await mri report. Based on your medical judgment of the clinical indicators outlined above please clarify the following: [] Practitioner response [] If unable to determine, please check the box, sign and date. Present On Admission (POA) Indicator: [] Present at the time of admission [] Not present at the time of admission [] Clinically Undetermined In responding to this query, please exercise your independent professional judgment. The fact that a question is asked does not imply that any particular answer is desired or expected. Thank you for your clarification on this documentation. If you have any questions please call. * Thank you, Jalyn Cabrera RN BSN ext. #[phone] MTDD
[2017-05-08] MEDS ORDERED: Gadodiamide 287 MG/ML VIAL (15ML) IV ONE (16:55)
--- NOTE | 2017-05-08 18:04 | CP.PCM.PN ---
Subjective - Date & Time of Evaluation Date of Evaluation: 05/08/17 Time of Evaluation: 08:00 - Subjective Subjective: wound c/s + staph await sensitivity Objective - Vital Signs/Intake and Output Vital Signs (last 24 hours): Temp Pulse Resp BP Pulse Ox 98.7 F 87 18 132/82 100 05/08/17 16:28 05/08/17 16:28 05/08/17 16:28 05/08/17 16:28 05/08/17 16:28 - Medications Medications: Current Medications Acetaminophen (Tylenol 325mg Tab) 650 mg PO Q6 PRN PRN Reason: Pain, Mild (1-3) Enoxaparin Sodium (Lovenox) 40 mg SC DAILY [facility] PRN Reason: Protocol Last Admin: 05/08/17 08:58 Dose: 40 mg Vancomycin HCl 1 gm/ Sodium (Chloride) 250 mls @ 166.667 mls/hr IVPB Q12 [facility] Last Admin: 05/08/17 10:47 Dose: 166.667 mls/hr Piperacillin Sod/Tazobactam Sod (Zosyn 3.375 Gm Iv Premix) 3.375 gm in 50 mls @ 50 mls/hr IVPB Q12H [facility] Last Admin: 05/08/17 06:02 Dose: 50 mls/hr Ketorolac Tromethamine (Toradol) 30 mg IVP Q6 PRN PRN Reason: Pain, moderate (4-7) Morphine Sulfate (Morphine) 2 mg IVP Q6 PRN PRN Reason: Pain, severe (8-10) - Labs Labs: 05/08/17 06:00 05/08/17 06:00 PT 13.5 Seconds (9.8-13.1) H 05/07/17 10:25 INR 1.2 (0.9-1.2) 05/07/17 10:25 APTT 32.0 Seconds (25.6-37.1) 05/07/17 09:00 Assessment and Plan (1) Failure of outpatient treatment Status: Acute (2) Failure of outpatient treatment Status: Acute (3) Cellulitis of left foot Status: Acute (4) Cellulitis Status: Acute
[2017-05-09] MEDS: Piperacill/Tazo 3.375gm in Dex 3.375 GM/50 ML BAG IVPB SCH (05:52)
--- NOTE | 2017-05-09 07:32 | CP.PCM.PN ---
Subjective - Date & Time of Evaluation Date of Evaluation: 05/09/17 Time of Evaluation: 06:15 - Subjective Subjective: 36 year old male patient seen at bedside for left foot pain, redness, and swelling. Patient seen sleeping in bed comfortably, AAOx3 and NAD. Patient denies any acute events overnight. Patient reports that he was walking around more yesterday so his left foot is sore, but admits to decreased pain and pressure. Patient denies any fever or chills today. Patient denies N/V/D/SOB. No other pedal complaints at this time. Objective - Vital Signs/Intake and Output Vital Signs (last 24 hours): Temp Pulse Resp BP Pulse Ox 98.7 F 80 18 140/90 98 05/09/17 00:12 05/09/17 00:12 05/09/17 00:12 05/09/17 00:12 05/09/17 00:12 - Medications Medications: Current Medications Acetaminophen (Tylenol 325mg Tab) 650 mg PO Q6 PRN PRN Reason: Pain, Mild (1-3) Enoxaparin Sodium (Lovenox) 40 mg SC DAILY [facility]NE[facility] PRN Reason: Protocol Last Admin: 05/08/17 08:58 Dose: 40 mg Vancomycin HCl 1 gm/ Sodium (Chloride) 250 mls @ 166.667 mls/hr IVPB Q12 [facility] Last Admin: 05/08/17 21:21 Dose: 166.667 mls/hr Piperacillin Sod/Tazobactam Sod (Zosyn 3.375 Gm Iv Premix) 3.375 gm in 50 mls @ 50 mls/hr IVPB Q12H [facility] Last Admin: 05/09/17 05:52 Dose: 50 mls/hr Ketorolac Tromethamine (Toradol) 30 mg IVP Q6 PRN PRN Reason: Pain, moderate (4-7) Morphine Sulfate (Morphine) 2 mg IVP Q6 PRN PRN Reason: Pain, severe (8-10) - Labs Labs: 05/08/17 06:00 05/08/17 06:00 PT 13.5 Seconds (9.8-13.1) H 05/07/17 10:25 INR 1.2 (0.9-1.2) 05/07/17 10:25 APTT 32.0 Seconds (25.6-37.1) 05/07/17 09:00 - Constitutional Appears: Well, Non-toxic, No Acute Distress - Extremities Exam Additional comments: LLE focused physical exam: Vasc: DP and PT pulses palpable 2/4. CFT <3 seconds to all digits x5. TG warm to warm. Neuro: Gross sensation intact. Derm: Erythema noted dorsal and lateral aspects of left foot, resolving. Red- purple discoloration noted to base of 4th digit, and no fluctuance to area of discoloration. Previous incision to base of 4th digit appears healed with overlying eschar. Ortho: Decreased pain on palpation noted to dorsolateral left foot. No pain upon ROM 4th digit. Full ROM 4th digit. - Neurological Exam Neurological Exam: Alert, Awake, Oriented x3 - Psychiatric Exam Psychiatric exam: Normal Affect, Normal Mood Assessment and Plan - Assessment and Plan (Free Text) Assessment: 36 year old male with cellulitis and abscess secondary to bug bite Plan: Patient seen and evaluated at bedside. Discussed with attending, Dr. Calderon. Charts, labs, vitals reviewed = afebrile, WBC leukocytosis @ 12.7 on 05/08/17 ( slightly increased from yesterday @ 12.6 05/07/17). Left foot wound cultre prelim results = MRSA Per ID, increased Vanco to 1g q8h with possible d/c on PO clinda if progress continues Left foot XR report WNL Left foot MRI taken: - Cellulitis with local enhancement surrounding 2nd-4th digits as well as dorsal sides of 2nd-4th metatarsal bones, including plegmon overlying head of 4th metatarsal - Limited emphysematous changes seen in dorsal ST of forefoot indicative of infectious cellulitis Left foot dressed with 4x4 and kerlix. Continue pain mgmt per medicine = Tylenol, Toradol, Morphine Podiatry will continue to follow while in house.
[2017-05-09] MEDS: Enoxaparin 40 mg Syringe SC SCH (09:26)
--- NOTE | 2017-05-09 12:25 | MRI ---
PROCEDURE: MRI Left Foot HISTORY: Pain. COMPARISON: Left foot radiographs 05/08/2017. TECHNIQUE: Multiecho multiplanar sequences were performed through the left foot without the use of intravenous contrast. FINDINGS: BONES: No fracture. Normal marrow signal, including posteriorly enhanced imaging. No MR evidence to suggest osteomyelitis. MUSCLES: Normal. SOFT TISSUES: Dorsal lateral soft tissue edema is appreciated and in the mid to forefoot distribution suggests of cellulitis with local enhancement surrounding the 2nd 3rd and 4th digits as well as the dorsal sides of the 2nd 3rd and 4th metatarsal bones including phlegmon overlying the head of the 4th metatarsal bone. Trace gas is integrated with radiographic study left foot noted above immediately deep to the dermis in the plane of the distal portion left 3rd metatarsal bone. Soft tissue enhancement is seen in the dorsal subcutaneous fat as well as the dermis of the midfoot and forefoot and also involves the 3rd interosseous muscle superficially, between the 4th and 5th metatarsal bones distally. The plantar fascia is intact and appears unremarkable as imaged. Note the posterior portion of the hindfoot is not included in this exam the level of the neck of the calcaneus posteriorly. LISFRANC LIGAMENT: Heterogeneous signal intensity within the Lisfranc ligament is identified with partial tear not fully excluded. PLANTAR PLATE: Normal. EXTENSOR TENDONS: Normal. FLEXOR TENDONS: Normal. OTHER FINDINGS: None. IMPRESSION: 1. There is no MR evidence of osteomyelitis although cellulitis and myositis identified at the dorsolateral midfoot and forefoot, as discussed above. No definite tenosynovitis. 2. Limited emphysematous changes are seen in the dorsal soft tissues of the forefoot indicative of infectious cellulitis. 3. Partial tear of the Lisfranc ligament is not excluded completely.
--- NOTE | 2017-05-09 12:49 | CP.PCM.PN ---
Subjective - Date & Time of Evaluation Date of Evaluation: 05/09/17 Time of Evaluation: 10:00 - Subjective Subjective: improving slowly left foot still red but less intense no pus from 4th 5th interspace +MRSA increased Vanco to 1g q8h possible d/c on PO clinda if progress continues Objective - Vital Signs/Intake and Output Vital Signs (last 24 hours): Temp Pulse Resp BP Pulse Ox 98.4 F 76 18 132/88 93 L 05/09/17 08:17 05/09/17 08:17 05/09/17 08:17 05/09/17 08:17 05/09/17 08:17 - Medications Medications: Current Medications Acetaminophen (Tylenol 325mg Tab) 650 mg PO Q6 PRN PRN Reason: Pain, Mild (1-3) Enoxaparin Sodium (Lovenox) 40 mg SC DAILY [facility] PRN Reason: Protocol Last Admin: 05/09/17 09:26 Dose: 40 mg Vancomycin HCl 1,000 mg/ (Sodium Chloride) 250 mls @ 250 mls/hr IVPB Q8H [facility] Ketorolac Tromethamine (Toradol) 30 mg IVP Q6 PRN PRN Reason: Pain, moderate (4-7) Morphine Sulfate (Morphine) 2 mg IVP Q6 PRN PRN Reason: Pain, severe (8-10) - Labs Labs: 05/08/17 06:00 05/08/17 06:00 PT 13.5 Seconds (9.8-13.1) H 05/07/17 10:25 INR 1.2 (0.9-1.2) 05/07/17 10:25 APTT 32.0 Seconds (25.6-37.1) 05/07/17 09:00 Assessment and Plan (1) Failure of outpatient treatment Status: Acute (2) Failure of outpatient treatment Status: Acute (3) Cellulitis of left foot Status: Acute (4) Cellulitis Status: Acute
--- NOTE | 2017-05-09 15:27 | CP.PCM.PN ---
<Traci Viera - Last Filed: 05/09/17 16:19> Subjective - Date & Time of Evaluation Date of Evaluation: 05/09/17 Time of Evaluation: 07:35 - Subjective Subjective: Patient seen and examined at bedside, laying in bed in no acute distress. Reports mild soreness but no pain in LLE, reports he walked around without any problems yesterday. Tolerating PO diet, afebrile, with normal urine and stool output. Objective - Vital Signs/Intake and Output Vital Signs (last 24 hours): Temp Pulse Resp BP Pulse Ox 98.4 F 76 18 132/88 93 L 05/09/17 08:17 05/09/17 08:17 05/09/17 08:17 05/09/17 08:17 05/09/17 08:17 - Medications Medications: Current Medications Acetaminophen (Tylenol 325mg Tab) 650 mg PO Q6 PRN PRN Reason: Pain, Mild (1-3) Enoxaparin Sodium (Lovenox) 40 mg SC DAILY [facility] PRN Reason: Protocol Last Admin: 05/09/17 09:26 Dose: 40 mg Vancomycin HCl 1 gm/ Sodium (Chloride) 250 mls @ 166.667 mls/hr IVPB Q8@0100, 0900,1500 [facility] Ketorolac Tromethamine (Toradol) 30 mg IVP Q6 PRN PRN Reason: Pain, moderate (4-7) Morphine Sulfate (Morphine) 2 mg IVP Q6 PRN PRN Reason: Pain, severe (8-10) - Labs Labs: 05/08/17 06:00 05/08/17 06:00 PT 13.5 Seconds (9.8-13.1) H 05/07/17 10:25 INR 1.2 (0.9-1.2) 05/07/17 10:25 APTT 32.0 Seconds (25.6-37.1) 05/07/17 09:00 - Constitutional Appears: Non-toxic, No Acute Distress - Head Exam Head Exam: ATRAUMATIC, NORMOCEPHALIC - Eye Exam Eye Exam: EOMI, PERRL - ENT Exam ENT Exam: Mucous Membranes Moist - Neck Exam Neck Exam: Full ROM. absent: Lymphadenopathy - Respiratory Exam Respiratory Exam: Clear to Ausculation Bilateral, NORMAL BREATHING PATTERN - Cardiovascular Exam Cardiovascular Exam: REGULAR RHYTHM, +S1, +S2 - GI/Abdominal Exam GI & Abdominal Exam: Soft (obese), Normal Bowel Sounds. absent: Tenderness - Extremities Exam Extremities Exam: Full ROM (of b/l upper and lower extremities; LLE: can wiggle all toes, strength 5/5, sensation normal and intact, mild erythema from along dorsal aspect from 4th digit base and proximally up to navicular region, small incision healed well at base of 4th digit dorsally, no drainage) - Back Exam Back Exam: absent: CVA tenderness (L), CVA tenderness (R) - Neurological Exam Neurological Exam: Alert, Awake - Psychiatric Exam Psychiatric exam: Flat Affect, Normal Mood - Skin Skin Exam: Dry Assessment and Plan - Assessment and Plan (Free Text) Assessment: 36 yr old M admitted for worsening LLE cellulitis s/p failed outpatient PO antibiotics, with no other significant PMHx. Podiatry and ID are on board. I&D performed, Wound culture results are MRSA. Patient is improving, swelling and erythema have decreased. Afebrile overnight. PT order in place. LLE Cellulitis -worsened s/p failed PO antibiotics as outpatient -afebrile, leukocytosis persists 12.4 -Podiatry consult appreciated-Dr. Calderon: I&D performed, will follow recommendations -Day 3 of Vancomycin 1gm IV Q8H -discontinue Zosyn 3.375gm IV Q12H -Vanco trough 8.0 (05/08/17) -ID consulted-Dr. Bailey: will follow recommendations -pain management Tylenol (mild pain), Toradol (moderate), Morphine (severe) -regular diet - Lyme disease screen negative, Hep panel negative, BCx negative x 24hrs, Wound Cx :MRSA -Left foot xray Elevated LFT -acute, improving, AST wnl, ALT 158 - monitor Cannabis use -UTox positive for cannabinoids -patient counseled against cannabinoid/drug use DVT prophylaxis -Lovenox 40mg SC QD <Cassy Ye - Last Filed: 05/10/17 09:34> Objective - Vital Signs/Intake and Output Vital Signs (last 24 hours): Temp Pulse Resp BP Pulse Ox 98.4 F 77 20 120/81 100 05/10/17 08:47 05/10/17 08:47 05/10/17 08:47 05/10/17 08:47 07/22/17 08:47 - Medications Medications: Current Medications Acetaminophen (Tylenol 325mg Tab) 650 mg PO Q6 PRN PRN Reason: Pain, Mild (1-3) Enoxaparin Sodium (Lovenox) 40 mg SC DAILY [facility] PRN Reason: Protocol Last Admin: 05/10/17 09:26 Dose: 40 mg Vancomycin HCl 1 gm/ Sodium (Chloride) 250 mls @ 166.667 mls/hr IVPB Q8@0100, 0900,1700 [facility] Last Admin: 05/10/17 09:26 Dose: 166.667 mls/hr Ketorolac Tromethamine (Toradol) 30 mg IVP Q6 PRN PRN Reason: Pain, moderate (4-7) Morphine Sulfate (Morphine) 2 mg IVP Q6 PRN PRN Reason: Pain, severe (8-10) - Labs Labs: 05/09/17 15:28 05/08/17 06:00 PT 13.5 Seconds (9.8-13.1) H 05/07/17 10:25 INR 1.2 (0.9-1.2) 05/07/17 10:25 APTT 32.0 Seconds (25.6-37.1) 05/07/17 09:00 Assessment and Plan - Assessment and Plan (Free Text) Plan: ADDENDUM ATTENDING NOTE PATIENT SEEN AND EXAMINED. CASE DISCUSSED WITH RESIDENT. AGREE WITH FINDINGS AND PLAN.
[2017-05-09 15:32] LABS: HEMOGLOBIN 11.7 g/dL (12.0-18.0); MEAN CELL VOLUME 91.4 fl (80.0-94.0); MEAN CORPUSCULAR HEMOGLOBIN 30.4 pg (27.0-31.0); MEAN CORPUSCULAR HGB CONC 33.3 g/dL (33.0-37.0); RBC 3.83 Mil/uL (4.40-5.90); RED CELL DISTRIBUTION WIDTH 13.6 % (11.5-14.5); WHITE BLOOD COUNT 12.4 K/uL (4.8-10.8)
[2017-05-10] MEDS: Enoxaparin 40 mg Syringe SC SCH (09:26)
--- NOTE | 2017-05-10 11:04 | CP.PCM.PN ---
Subjective - Date & Time of Evaluation Date of Evaluation: 05/10/17 Time of Evaluation: 09:00 - Subjective Subjective: 36 year old male patient seen at bedside for left foot painful abscess + cellulitis. Patient seen resting in bed comfortably, AAOx3 and NAD. Patient denies any acute events overnight. Patient reports continued pain to left foot however decreased significantly from date of admission. Patient states he is able to move his toes and the rest of his foot without difficulty. Yesterday, patient was told of MRI finding that states a potential partial tear of Lisfranc ligament cannot be excluded. Patient is questioning whether this is an acute injury or evidence of a previous injury. Patient denies N/V/F/D/C/SOB/CP. No other pedal complaints at this time. Objective - Vital Signs/Intake and Output Vital Signs (last 24 hours): Temp Pulse Resp BP Pulse Ox 98.4 F 77 20 120/81 100 05/10/17 08:47 05/10/17 08:47 05/10/17 08:47 05/10/17 08:47 05/10/17 08:47 - Medications Medications: Current Medications Acetaminophen (Tylenol 325mg Tab) 650 mg PO Q6 PRN PRN Reason: Pain, Mild (1-3) Enoxaparin Sodium (Lovenox) 40 mg SC DAILY [facility] PRN Reason: Protocol Last Admin: 05/10/17 09:26 Dose: 40 mg Vancomycin HCl 1 gm/ Sodium (Chloride) 250 mls @ 166.667 mls/hr IVPB Q8@0100, 0900,1700 [facility] Last Admin: 05/10/17 09:26 Dose: 166.667 mls/hr Ketorolac Tromethamine (Toradol) 30 mg IVP Q6 PRN PRN Reason: Pain, moderate (4-7) Morphine Sulfate (Morphine) 2 mg IVP Q6 PRN PRN Reason: Pain, severe (8-10) - Labs Labs: 05/09/17 15:28 05/08/17 06:00 PT 13.5 Seconds (9.8-13.1) H 05/07/17 10:25 INR 1.2 (0.9-1.2) 05/07/17 10:25 APTT 32.0 Seconds (25.6-37.1) 05/07/17 09:00 - Constitutional Appears: Well, Non-toxic, No Acute Distress - Extremities Exam Additional comments: LLE focused physical exam: Vasc: DP and PT pulses palpable 2/4. CFT <3 seconds to all digits x5. TG warm to warm. No increase in warmth to dorsolateral foot. Neuro: Gross sensation intact. Derm: Erythema noted dorsal and lateral aspects of left foot, resolving. Red- purple discoloration previously noted to base of 4th digit has resolved, and no fluctuance to area of previous discoloration. Previous incision from drainage site located at base of 4th digit appears healed with overlying eschar. No ecchymosis noted to dorsal/dorsomedial midfoot. No plantar ecchymosis noted. Ortho: No pain on palpation noted to dorsolateral left foot. No pain upon passive ROM 4th digit. Full ROM digits 1-5 without pain or crepitus noted. No pain on palpation to dorsum of 1st and 2nd met bases. Negative piano argueta test. Muscle strength 5/5 for all dorsiflexors, plantarflexors, inverters, and everters without pain noted. - Neurological Exam Neurological Exam: Alert, Awake, Oriented x3 - Psychiatric Exam Psychiatric exam: Normal Affect, Normal Mood Assessment and Plan - Assessment and Plan (Free Text) Assessment: 36 year old male with left foot abscess and cellulitis secondary to bug bite Plan: Patient seen and evaluated at bedside. Discussed with attending, Dr. Butts. Charts, labs, vitals reviewed = afebrile, WBC trending downwards (12.7 on , 12.4 on 05/09/17) Reviewed L foot MRI impression: 1. No MR evidence of OM although cellulitis and myositis identified at dorsolateral midfoot and forefoot. 2. Limited emphysematous changes seen in dorsal soft tissues of forefoot indicative of infectious cellulitis. 3. Partial tear of Lisfranc ligament is not excluded completely. - Explained to patient that his complaint of pain on dorsolateral midfoot along with physical exam findings does not correlate with acute Lisfranc injury. Left foot dressed with 4x4 and kerlix Continue mgmt per medicine = Tylenol, Toradol, Morphine All questions were answered to patient satisfaction. Continue abx per ID - Vancomycin 1g q8h -Agree with family medicine that patient is medically stable to be discharge; awaiting ID recommendation with Dr. Bailey for outpatient antibiotics Podiatry will continue to follow patient closely while in house.
--- NOTE | 2017-05-10 12:55 | CP.PCM.PN ---
<Daniella Aguilar - Last Filed: 05/10/17 12:59> Subjective - Date & Time of Evaluation Date of Evaluation: 05/10/17 Time of Evaluation: 09:15 - Subjective Subjective: Pt seen and examined at bedside this morning, still reports pain in his left point, states he been told there is evidence of an old injury on MRI but he never injured his foot so does not know how it could be an old injury. Explained to pt I will inform podiatry to better explain MRI findings to him and answer all his questions. however there was no evidence of osteomylitis which means he can be discharge home pending podiatry clearance with PO antibiotics has he is medically stable. Objective - Vital Signs/Intake and Output Vital Signs (last 24 hours): Temp Pulse Resp BP Pulse Ox 98.4 F 77 20 120/81 100 05/10/17 08:47 05/10/17 08:47 05/10/17 08:47 05/10/17 08:47 05/10/17 08:47 - Medications Medications: Current Medications Acetaminophen (Tylenol 325mg Tab) 650 mg PO Q6 PRN PRN Reason: Pain, Mild (1-3) Enoxaparin Sodium (Lovenox) 40 mg SC DAILY [facility] PRN Reason: Protocol Last Admin: 05/10/17 09:26 Dose: 40 mg Vancomycin HCl 1 gm/ Sodium (Chloride) 250 mls @ 166.667 mls/hr IVPB Q8@0100, 0900,1700 [facility] Last Admin: 05/10/17 09:26 Dose: 166.667 mls/hr Ketorolac Tromethamine (Toradol) 30 mg IVP Q6 PRN PRN Reason: Pain, moderate (4-7) Morphine Sulfate (Morphine) 2 mg IVP Q6 PRN PRN Reason: Pain, severe (8-10) - Labs Labs: 05/09/17 15:28 05/08/17 06:00 PT 13.5 Seconds (9.8-13.1) H 05/07/17 10:25 INR 1.2 (0.9-1.2) 05/07/17 10:25 APTT 32.0 Seconds (25.6-37.1) 05/07/17 09:00 - Constitutional Appears: Non-toxic, No Acute Distress - Head Exam Head Exam: NORMOCEPHALIC - Eye Exam Eye Exam: Normal appearance - ENT Exam ENT Exam: Mucous Membranes Moist - Respiratory Exam Respiratory Exam: Clear to Ausculation Bilateral, NORMAL BREATHING PATTERN - Cardiovascular Exam Cardiovascular Exam: REGULAR RHYTHM, +S1, +S2 - GI/Abdominal Exam GI & Abdominal Exam: Soft, Normal Bowel Sounds - Extremities Exam Additional comments: Full ROM (of b/l upper and lower extremities; LLE: can wiggle all toes, strength 5/5, sensation normal and intact, mild erythema from along dorsal aspect from 4th digit base and proximally up to navicular region, small incision healed well at base of 4th digit dorsally, no drainage - Neurological Exam Neurological Exam: Alert, Awake, Oriented x3 Assessment and Plan - Assessment and Plan (Free Text) Assessment: 36 yr old M admitted for worsening LLE cellulitis s/p failed outpatient PO antibiotics, with no other significant PMHx. Podiatry and ID are on board. I&D performed, Wound culture results are MRSA. Patient is improving, swelling and erythema have decreased. Afebrile overnight. PT order in place. LLE Cellulitis -worsened s/p failed PO antibiotics as outpatient -afebrile, leukocytosis persists 12.4 -Podiatry consult appreciated-Dr. Calderon: I&D performed, will follow recommendations -Day 3 of Vancomycin 1gm IV Q8H -discontinue Zosyn 3.375gm IV Q12H -Vanco trough 8.0 (05/08/17) -ID consulted-Dr. Bailey: will follow recommendations -pain management Tylenol (mild pain), Toradol (moderate), Morphine (severe) -regular diet - Lyme disease screen negative, Hep panel negative, BCx negative x 24hrs, Wound Cx :MRSA -F/u Left foot xray and Ankle xray Elevated LFT -acute, improving, AST wnl, ALT 158 - monitor Cannabis use -UTox positive for cannabinoids -patient counseled against cannabinoid/drug use DVT prophylaxis -Lovenox 40mg SC QD Discharge Disposition: Possible discharge in the morning, spoke with Dr. Bailey via phone who recommends clinda PO to complete antibiotic course <Cassy Ye - Last Filed: 05/11/17 08:44> Objective - Vital Signs/Intake and Output Vital Signs (last 24 hours): Temp Pulse Resp BP Pulse Ox 98.4 F 78 20 129/87 99 05/11/17 07:43 05/11/17 07:43 05/11/17 07:43 05/11/17 07:43 05/11/17 07:43 - Medications Medications: Current Medications Acetaminophen (Tylenol 325mg Tab) 650 mg PO Q6 PRN PRN Reason: Pain, Mild (1-3) Enoxaparin Sodium (Lovenox) 40 mg SC DAILY [facility] PRN Reason: Protocol Last Admin: 05/10/17 09:26 Dose: 40 mg Vancomycin HCl 1 gm/ Sodium (Chloride) 250 mls @ 166.667 mls/hr IVPB Q8@0100, 0900,1700 [facility] Last Admin: 05/11/17 00:06 Dose: 166.667 mls/hr Ketorolac Tromethamine (Toradol) 30 mg IVP Q6 PRN PRN Reason: Pain, moderate (4-7) Morphine Sulfate (Morphine) 2 mg IVP Q6 PRN PRN Reason: Pain, severe (8-10) - Labs Labs: 05/10/17 17:30 05/08/17 06:00 PT 13.5 Seconds (9.8-13.1) H 05/07/17 10:25 INR 1.2 (0.9-1.2) 05/07/17 10:25 APTT 32.0 Seconds (25.6-37.1) 05/07/17 09:00 Assessment and Plan - Assessment and Plan (Free Text) Assessment: ATTENDING NOTE - ADDENDUM PATIENT SEEN AND EXAMINED. CASE DISCUSSED WITH RESIDENT. AGREE WITH FINDINGS AND PLAN.
[2017-05-10 17:43] LABS: HEMOGLOBIN 11.4 g/dL (12.0-18.0); MEAN CELL VOLUME 92.2 fl (80.0-94.0); MEAN CORPUSCULAR HEMOGLOBIN 29.8 pg (27.0-31.0); MEAN CORPUSCULAR HGB CONC 32.3 g/dL (33.0-37.0); RBC 3.82 Mil/uL (4.40-5.90); RED CELL DISTRIBUTION WIDTH 13.7 % (11.5-14.5)
--- NOTE | 2017-05-11 08:37 | RAD ---
PROCEDURE: Left Foot Radiographs. HISTORY: Reports pain, f/u injury COMPARISON: None. FINDINGS: BONES: Normal. No fracture. JOINTS: Normal. SOFT TISSUES: Dorsal soft tissue swelling. OTHER FINDINGS: None. IMPRESSION: Dorsal soft tissue swelling.
--- NOTE | 2017-05-11 08:51 | RAD ---
HISTORY: reports pain COMPARISON: No prior FINDINGS: BONES: Normal. No fracture. JOINTS: Normal. No osteoarthritis. SOFT TISSUE: Normal. OTHER FINDINGS: None . IMPRESSION: Normal Bone Xray.
[2017-05-11 09:24] LABS: HEMOGLOBIN 11.2 g/dL (12.0-18.0); MEAN CELL VOLUME 91.3 fl (80.0-94.0); MEAN CORPUSCULAR HEMOGLOBIN 29.9 pg (27.0-31.0); MEAN CORPUSCULAR HGB CONC 32.7 g/dL (33.0-37.0); RBC 3.74 Mil/uL (4.40-5.90); RED CELL DISTRIBUTION WIDTH 13.4 % (11.5-14.5); WHITE BLOOD COUNT 12.5 K/uL (4.8-10.8)
[2017-05-11 09:30] LABS: GFR AFRICAN-AMERICAN > 60; GFR NON-AFRICAN AMERICAN > 60
[2017-05-11 09:31] LABS: BLOOD UREA NITROGEN 17 mg/dl (9-20); CALCIUM 9.4 mg/dL (8.4-10.2)
[2017-05-11] MEDS: Enoxaparin 40 mg Syringe SC SCH (10:23)
--- NOTE | 2017-05-11 10:28 | CP.PCM.PN ---
Subjective - Date & Time of Evaluation Date of Evaluation: 05/11/17 Time of Evaluation: 10:28 - Subjective Subjective: 36 year old male patient seen at bedside for left foot painful abscess + cellulitis. Patient seen out of bed, AAOx3 and NAD. Patient denies any acute events overnight. Patient reports continued pain to left foot however decreased significantly from date of admission. Patient states he is able to move his toes and the rest of his foot without difficulty. Patient states his mood is improving. Patient denies N/V/F/D/C/SOB/CP. No other pedal complaints at this time. Objective - Vital Signs/Intake and Output Vital Signs (last 24 hours): Temp Pulse Resp BP Pulse Ox 98.4 F 78 20 129/87 99 05/11/17 07:43 05/11/17 07:43 05/11/17 07:43 05/11/17 07:43 05/11/17 07:43 - Medications Medications: Current Medications Acetaminophen (Tylenol 325mg Tab) 650 mg PO Q6 PRN PRN Reason: Pain, Mild (1-3) Enoxaparin Sodium (Lovenox) 40 mg SC DAILY [facility] PRN Reason: Protocol Last Admin: 05/11/17 10:23 Dose: 40 mg Vancomycin HCl 1 gm/ Sodium (Chloride) 250 mls @ 166.667 mls/hr IVPB Q8@0100, 0900,1700 [facility] Last Admin: 05/11/17 10:22 Dose: 166.667 mls/hr Ketorolac Tromethamine (Toradol) 30 mg IVP Q6 PRN PRN Reason: Pain, moderate (4-7) Morphine Sulfate (Morphine) 2 mg IVP Q6 PRN PRN Reason: Pain, severe (8-10) - Labs Labs: 05/11/17 09:00 05/11/17 09:00 PT 13.5 Seconds (9.8-13.1) H 05/07/17 10:25 INR 1.2 (0.9-1.2) 05/07/17 10:25 APTT 32.0 Seconds (25.6-37.1) 05/07/17 09:00 - Constitutional Appears: Well, Non-toxic, No Acute Distress - Extremities Exam Additional comments: LLE focused physical exam: Vasc: DP and PT pulses palpable 2/4. CFT <3 seconds to all digits x5. TG warm to warm. No increase in warmth to dorsolateral foot. Neuro: Gross sensation intact. Derm: Erythema noted dorsal and lateral aspects of left foot, resolving. Red- purple discoloration previously noted to base of 4th digit has resolved, and no fluctuance to area of previous discoloration. Previous incision from drainage site located at base of 4th digit appears healed with overlying eschar. Peeling skin on dorsum of foot near base of 4th digit. Xerosis noted. No ecchymosis noted to dorsal/dorsomedial midfoot. No plantar ecchymosis noted. Ortho: No pain on palpation noted to dorsolateral left foot. No pain upon passive ROM 4th digit. Full ROM digits 1-5 without pain or crepitus noted. No pain on palpation to dorsum of 1st and 2nd met bases. Negative piano argueta test. Muscle strength 5/5 for all dorsiflexors, plantarflexors, inverters, and everters without pain noted. - Neurological Exam Neurological Exam: Alert, Awake, Oriented x3 - Psychiatric Exam Psychiatric exam: Normal Affect, Normal Mood Assessment and Plan - Assessment and Plan (Free Text) Assessment: 36 year old male with left foot abscess and cellulitis secondary to bug bite Plan: Patient seen and evaluated at bedside. Discussed with attending, Dr. Butts. Charts, labs, vitals reviewed = afebrile, WBC @12.5 (12.7 on 05/08/17, 12.4 on ,12.0 on 05/10/17) Left foot dressed with 4x4 and kerlix Continue mgmt per medicine = Tylenol, Toradol, Morphine All questions were answered to patient satisfaction. Continue abx per ID - Vancomycin 1g q8h -Agree with family medicine that patient is medically stable to be discharge; awaiting ID recommendation with Dr. Bailey for outpatient antibiotics Podiatry will continue to follow patient closely while in house.
--- NOTE | 2017-05-11 13:52 | CP.PCM.PN ---
Subjective - Date & Time of Evaluation Date of Evaluation: 05/11/17 Time of Evaluation: 07:00 - Subjective Subjective: iv rx in progress still c/o pain podiatry on board iv rx renewed Objective - Vital Signs/Intake and Output Vital Signs (last 24 hours): Temp Pulse Resp BP Pulse Ox 98.4 F 78 20 129/87 99 05/11/17 07:43 05/11/17 07:43 05/11/17 07:43 05/11/17 07:43 05/11/17 07:43 - Medications Medications: Current Medications Acetaminophen (Tylenol 325mg Tab) 650 mg PO Q6 PRN PRN Reason: Pain, Mild (1-3) Enoxaparin Sodium (Lovenox) 40 mg SC DAILY [facility] PRN Reason: Protocol Last Admin: 05/11/17 10:23 Dose: 40 mg Vancomycin HCl 1 gm/ Sodium (Chloride) 250 mls @ 166.667 mls/hr IVPB Q8@0100, 0900,1700 [facility] Last Admin: 05/11/17 10:22 Dose: 166.667 mls/hr Ketorolac Tromethamine (Toradol) 30 mg IVP Q6 PRN PRN Reason: Pain, moderate (4-7) Morphine Sulfate (Morphine) 2 mg IVP Q6 PRN PRN Reason: Pain, severe (8-10) - Labs Labs: 05/11/17 09:00 05/11/17 09:00 PT 13.5 Seconds (9.8-13.1) H 05/07/17 10:25 INR 1.2 (0.9-1.2) 05/07/17 10:25 APTT 32.0 Seconds (25.6-37.1) 05/07/17 09:00 - Constitutional Appears: Non-toxic, Cachectic, Chronically Ill - Head Exam Head Exam: NORMOCEPHALIC - Eye Exam Eye Exam: PERRL. absent: Scleral icterus - ENT Exam ENT Exam: Mucous Membranes Dry, Normal External Ear Exam - Neck Exam Neck Exam: absent: Lymphadenopathy - Respiratory Exam Respiratory Exam: Decreased Breath Sounds - Cardiovascular Exam Cardiovascular Exam: REGULAR RHYTHM - GI/Abdominal Exam GI & Abdominal Exam: Distended, Soft - Rectal Exam Rectal Exam: Deferred - Exam Exam: NORMAL INSPECTION Assessment and Plan (1) Failure of outpatient treatment Status: Acute (2) Failure of outpatient treatment Status: Acute (3) Cellulitis of left foot Status: Acute (4) Cellulitis Status: Acute
--- NOTE | 2017-05-11 15:16 | CP.PCM.PN ---
<Traci Viera - Last Filed: 05/11/17 15:13> Subjective - Date & Time of Evaluation Date of Evaluation: 05/11/17 Time of Evaluation: 08:20 - Subjective Subjective: Patient seen and examined at bedside, in no acute distress. No acute events overnight. Denies chest pain, SOB, weakness or dizziness. Is tolerating PO diet , PT, has normal urine and stool output. Objective - Vital Signs/Intake and Output Vital Signs (last 24 hours): Temp Pulse Resp BP Pulse Ox 98.4 F 78 20 129/87 99 05/11/17 07:43 05/11/17 07:43 05/11/17 07:43 05/11/17 07:43 05/11/17 07:43 - Medications Medications: Current Medications Acetaminophen (Tylenol 325mg Tab) 650 mg PO Q6 PRN PRN Reason: Pain, Mild (1-3) Enoxaparin Sodium (Lovenox) 40 mg SC DAILY [facility] PRN Reason: Protocol Last Admin: 05/11/17 10:23 Dose: 40 mg Vancomycin HCl 1 gm/ Sodium (Chloride) 250 mls @ 166.667 mls/hr IVPB Q8@0100, 0900,1700 [facility] Last Admin: 05/11/17 10:22 Dose: 166.667 mls/hr Ketorolac Tromethamine (Toradol) 30 mg IVP Q6 PRN PRN Reason: Pain, moderate (4-7) Morphine Sulfate (Morphine) 2 mg IVP Q6 PRN PRN Reason: Pain, severe (8-10) - Labs Labs: 05/11/17 09:00 05/11/17 09:00 PT 13.5 Seconds (9.8-13.1) H 05/07/17 10:25 INR 1.2 (0.9-1.2) 05/07/17 10:25 APTT 32.0 Seconds (25.6-37.1) 05/07/17 09:00 - Constitutional Appears: Non-toxic, No Acute Distress - Head Exam Head Exam: ATRAUMATIC, NORMOCEPHALIC - Eye Exam Eye Exam: EOMI - ENT Exam ENT Exam: Mucous Membranes Moist - Neck Exam Neck Exam: Full ROM. absent: Lymphadenopathy - Respiratory Exam Respiratory Exam: Clear to Ausculation Bilateral, NORMAL BREATHING PATTERN - Cardiovascular Exam Cardiovascular Exam: REGULAR RHYTHM, +S1, +S2 - GI/Abdominal Exam GI & Abdominal Exam: Soft, Normal Bowel Sounds. absent: Tenderness - Extremities Exam Extremities Exam: Full ROM (Full ROM (of b/l upper and lower extremities; LLE: can wiggle all toes, strength 5/5, sensation normal and intact, mild erythema from along dorsal aspect from 4th digit base and proximally up to metatarsal base, small incision healed well at base of 4th digit dorsally, no drainage). absent: Calf Tenderness, Pedal Edema, Tenderness - Back Exam Back Exam: absent: CVA tenderness (L), CVA tenderness (R) - Neurological Exam Neurological Exam: Alert, Awake, CN II-XII Intact - Psychiatric Exam Psychiatric exam: Normal Affect, Normal Mood - Skin Skin Exam: Dry, Intact, Normal Color Assessment and Plan - Assessment and Plan (Free Text) Assessment: 36 yr old M admitted for worsening LLE cellulitis s/p failed outpatient PO antibiotics, with no other significant PMHx. Podiatry and ID are on board. I&D performed, Wound culture results are MRSA. Patient is improving with IV antibiotics, swelling and erythema has improved daily. Has remained afebrile. LLE Cellulitis -worsened s/p failed PO antibiotics as outpatient -afebrile, leukocytosis persists 12.5 -Podiatry consult appreciated-Dr. Calderon: I&D performed, will follow recommendations -Day 5 of Vancomycin 1gm IV Q8H, (discontinue Zosyn 3.375gm IV Q12H) -Vanco trough 8.0 (05/08/17) -ID consulted-Dr. Bailey: will follow recommendations -pain management Tylenol (mild pain), Toradol (moderate), Morphine (severe) -regular diet -Lyme disease screen negative, Hep panel negative, BCx negative x 24hrs, Wound Cx :MRSA -Left foot xray: normal; Ankle xray : dorsal soft tissue swelling Elevated LFT -acute, improving, AST wnl, ALT 158 - monitor Cannabis use -UTox positive for cannabinoids -patient counseled against cannabinoid/drug use DVT prophylaxis -Lovenox 40mg SC QD <Cassy Ye - Last Filed: 05/12/17 10:39> Subjective - Subjective Subjective: ATTENDING NOTE ADDENDUM Patient seen and examined. case discussed with resident. Agree with findings and plan. Objective - Vital Signs/Intake and Output Vital Signs (last 24 hours): Temp Pulse Resp BP Pulse Ox 98.2 F 81 20 138/94 H 98 05/12/17 07:33 05/12/17 07:33 05/12/17 07:33 05/12/17 07:33 05/12/17 07:33 - Medications Medications: Current Medications Acetaminophen (Tylenol 325mg Tab) 650 mg PO Q6 PRN PRN Reason: Pain, Mild (1-3) Enoxaparin Sodium (Lovenox) 40 mg SC DAILY [facility] PRN Reason: Protocol Last Admin: 05/12/17 09:16 Dose: Not Given Vancomycin HCl 1 gm/ Sodium (Chloride) 250 mls @ 166.667 mls/hr IVPB Q8@0100, 0900,1700 [facility] Last Admin: 05/12/17 09:15 Dose: 166.667 mls/hr Ketorolac Tromethamine (Toradol) 30 mg IVP Q6 PRN PRN Reason: Pain, moderate (4-7) Morphine Sulfate (Morphine) 2 mg IVP Q6 PRN PRN Reason: Pain, severe (8-10) - Labs Labs: 05/11/17 09:00 05/11/17 09:00 PT 13.5 Seconds (9.8-13.1) H 05/07/17 10:25 INR 1.2 (0.9-1.2) 05/07/17 10:25 APTT 32.0 Seconds (25.6-37.1) 05/07/17 09:00
[2017-05-12 00:31] VITALS: O2SAT 98
[2017-05-12 07:34] VITALS: BP 138/94; PULSE 81; RESP 20; TEMP 98.2
[2017-05-12] MEDS: Enoxaparin 40 mg Syringe SC SCH (09:16)
--- NOTE | 2017-05-12 11:14 | CP.PCM.DIS ---
Provider - Provider Date of Admission: 05/07/17 06:31 Attending physician: Sofia Watson MD Consults: Dr. Cavazos-Podiatry; Dr. Bailey-infectious disease Time Spent in preparation of Discharge (in minutes): 30 Diagnosis - Discharge Diagnosis (1) Cellulitis of left foot Status: Acute Priority: Medium Hospital Course - Lab Results Lab Results: Micro Results 05/07/17 06:45 Blood Blood Culture - Final NO GROWTH AFTER 5 DAYS 05/07/17 06:45 Blood Gram Stain - Final TEST NOT PERFORMED 05/07/17 06:35 Blood Blood Culture - Final NO GROWTH AFTER 5 DAYS 05/07/17 06:35 Blood Gram Stain - Final TEST NOT PERFORMED 05/07/17 19:07 Leg - Left Gram Stain - Final 05/07/17 19:07 Leg - Left Wound Culture - Final Methicillin Resistant S Aureus Most Recent Lab Values WBC 12.5 K/uL (4.8-10.8) H 05/11/17 09:00 RBC 3.74 Mil/uL (4.40-5.90) L 05/11/17 09:00 Hgb 11.2 g/dL (12.0-18.0) L 05/11/17 09:00 Hct 34.2 % (35.0-51.0) L 05/11/17 09:00 MCV 91.3 fl (80.0-94.0) 05/11/17 09:00 MCH 29.9 pg (27.0-31.0) 05/11/17 09:00 MCHC 32.7 g/dL (33.0-37.0) L 05/11/17 09:00 RDW 13.4 % (11.5-14.5) 05/11/17 09:00 Plt Count 374 K/uL (130-400) 05/11/17 09:00 MPV 7.8 fl (7.2-11.7) 05/07/17 06:39 Neut % (Auto) 84.4 % (50.0-75.0) H 05/07/17 06:39 Lymph % (Auto) 5.4 % (20.0-40.0) L 05/07/17 06:39 Jones % (Auto) 6.2 % (0.0-10.0) 05/07/17 06:39 Eos % (Auto) 3.9 % (0.0-4.0) 05/07/17 06:39 Baso % (Auto) 0.1 % (0.0-2.0) 05/07/17 06:39 Neut # 10.6 K/uL (1.8-7.0) H 05/07/17 06:39 Lymph # 0.7 K/uL (1.0-4.3) L 05/07/17 06:39 Jones # 0.8 K/uL (0.0-0.8) 05/07/17 06:39 Eos # 0.5 K/uL (0.0-0.7) 05/07/17 06:39 Baso # 0.0 K/uL (0.0-0.2) 05/07/17 06:39 ESR 55 mm/hr (0-15) H 05/07/17 14:40 PT 13.5 Seconds (9.8-13.1) H 05/07/17 10:25 INR 1.2 (0.9-1.2) 05/07/17 10:25 APTT 32.0 Seconds (25.6-37.1) 05/07/17 09:00 Sodium 139 mmol/l (132-148) 05/11/17 09:00 Potassium 3.8 MMOL/L (3.6-5.0) 05/11/17 09:00 Chloride 104 mmol/L (98-107) 05/11/17 09:00 Carbon Dioxide 30 mmol/L (22-30) 05/11/17 09:00 Anion Gap 9 (10-20) L 05/11/17 09:00 BUN 17 mg/dl (9-20) 05/11/17 09:00 Creatinine 1.0 mg/dL (0.8-1.5) 05/11/17 09:00 Est GFR ( Amer) > 60 05/11/17 09:00 Est GFR (Non-Af Amer) > 60 05/11/17 09:00 Random Glucose 116 mg/dL (75-110) H 05/11/17 09:00 Lactic Acid 0.7 MMOL/L (0.7-2.1) 05/07/17 06:39 Calcium 9.4 mg/dL (8.4-10.2) 05/11/17 09:00 Total Bilirubin 0.6 mg/dl (0.2-1.3) 05/08/17 06:00 AST 59 U/L (17-59) D 05/08/17 06:00 ALT 158 U/L (21-72) H 05/08/17 06:00 Alkaline Phosphatase 107 U/L (38-126) 05/08/17 06:00 Total Protein 6.9 G/DL (6.3-8.2) 05/08/17 06:00 Albumin 3.8 g/dL (3.5-5.0) 05/08/17 06:00 Globulin 3.1 gm/dL (2.2-3.9) 05/08/17 06:00 Albumin/Globulin Ratio 1.2 (1.0-2.1) 05/08/17 06:00 Urine Color Yellow (YELLOW) 05/08/17 00:30 Urine Clarity Clear (Clear) 05/08/17 00:30 Urine pH 5.0 (5.0-8.0) 05/08/17 00:30 Ur Specific [place] 1.021 (1.003-1.030) 05/08/17 00:30 Urine Protein Negative mg/dL (NEGATIVE) 05/08/17 00:30 Urine Glucose (UA) Neg mg/dL (Normal) 05/08/17 00:30 Urine Ketones Negative mg/dL (NEGATIVE) 05/08/17 00:30 Urine Blood Negative (NEGATIVE) 05/08/17 00:30 Urine Nitrate Negative (NEGATIVE) 05/08/17 00:30 Urine Bilirubin Negative (NEGATIVE) 05/08/17 00:30 Urine Urobilinogen 0.2-1.0 mg/dL (0.2-1.0) 05/08/17 00:30 Ur Leukocyte Esterase Trace Amber/uL (Negative) 05/08/17 00:30 Urine RBC (Auto) 3 /hpf (0-3) 05/08/17 00:30 Urine Microscopic WBC 12 /hpf (0-5) H 05/08/17 00:30 Ur Squamous Epith Cells < 1 /hpf (0-5) 05/08/17 00:30 Vancomycin Trough 14.0 ug/mL (5.0-10.0) H 05/12/17 07:55 Urine Opiates Screen Negative (NEGATIVE) 05/08/17 00:30 Urine Methadone Screen Negative (NEGATIVE) 05/08/17 00:30 Ur Barbiturates Screen Negative (NEGATIVE) 05/08/17 00:30 Ur Phencyclidine Scrn Negative (NEGATIVE) 05/08/17 00:30 Ur Amphetamines Screen Negative (NEGATIVE) 05/08/17 00:30 U Benzodiazepines Scrn Negative (NEGATIVE) 05/08/17 00:30 U Oth Cocaine Metabols Negative (NEGATIVE) 05/08/17 00:30 U Cannabinoids Screen Positive (NEGATIVE) H 05/08/17 00:30 Lyme Disease Screen <0.90 index 05/07/17 14:44 Hepatitis A IgM Ab Negative (NEGATIVE) 05/07/17 14:40 Hep Bs Antigen Negative (NEGATIVE) 05/07/17 14:40 Hep B Core IgM Ab Negative (NEGATIVE) 05/07/17 14:40 Hepatitis C Antibody Negative (NEGATIVE) 05/07/17 14:40 HIV 1&2 Antibody Screen Negative (NEGATIVE) 05/07/17 14:00 - Hospital Course Hospital Course: 36 yr old M admitted for worsening LLE cellulitis s/p failed outpatient PO antibiotics, with no other significant PMHx. Podiatry and ID were on board. I&D was performed, Wound culture results were MRSA. All imaging wnl and negative for osteomyelitis. Patient improved significantly with IV antibiotics, swelling and erythema resolving. Patient was discharged stable with Rx for Bactrim DS 2 tabs PO Q12H x 10 days and Clindamycin 450mg QID x 7days, OTC probiotics, and instructions to follow up with Dr. Cavazos at wound care clinic in 1 week, follow up at [facility] on 05/13/17 at 10am. - Date & Time of H&P Date of H&P: 05/07/17 Time of H&P: 09:58 Discharge Exam - Head Exam Head Exam: ATRAUMATIC, NORMOCEPHALIC - Eye Exam Eye Exam: EOMI - ENT Exam ENT Exam: Mucous Membranes Moist - Neck Exam Neck exam: Full Rom - Respiratory Exam Respiratory Exam: Clear to PA & Lateral, NORMAL BREATHING PATTERN - Cardiovascular Exam Cardiovascular Exam: REGULAR RHYTHM, +S1, +S2 - GI/Abdominal Exam GI & Abdominal Exam: Normal Bowel Sounds, Soft. absent: Tenderness - Extremities Exam Extremities exam: full ROM (per podiatry: Erythema noted dorsal and lateral aspects of left foot, resolving. Red-purple discoloration previously noted to base of 4th digit has resolved, and no fluctuance to area of previous discoloration. Previous incision from drainage site located at base of 4th digit appears healed with overlying eschar. Peeling skin on dorsum of foot near base of 4th digit), normal capillary refill (strength 5/5 in b/l upper and lower extremities), pedal pulses present - Back Exam Back exam: absent: CVA tenderness (L), CVA tenderness (R) - Neurological Exam Neurological exam: Alert, CN II-XII Intact, Oriented x3 - Psychiatric Exam Psychiatric exam: Normal Affect, Normal Mood - Skin Skin Exam: Dry, Intact, Warm Discharge Plan - Discharge Medications Prescriptions: Clindamycin [Cleocin] 450 mg PO QID #28 cap Sulfamethoxazole/Trimethoprim [Bactrim DS 800 mg-160 mg] 2 tab PO Q12 #40 tab - Follow Up Plan Condition: FAIR Disposition: HOME/ ROUTINE Patient education suggested?: Yes Instructions: Cellulitis (DC) Additional Instructions: -Follow up with your primary care doctor within 1 week- appt at [facility] 05/13/17 at 10am -Follow up in wound care clinic with Dr. Cavazos in 1 week , call to make appt [phone] ( or Friday 10am-3pm) -Take your medicines as prescribed, take OTC probiotics daily while taking antibiotics -ER precautions (worsening redness/swelling/warmth, chills, fever >100.4 F) Referrals: Ed Cavazos DPM [Staff Provider] -
--- NOTE | 2017-05-12 14:02 | CP.PCM.PN ---
Subjective - Date & Time of Evaluation Date of Evaluation: 05/12/17 Time of Evaluation: 07:00 - Subjective Subjective: 36 year old male patient seen at bedside for left foot painful abscess + cellulitis. Patient seen out of bed, AAOx3 and NAD. Patient denies any acute events overnight. Patient reports decreased pain to LLE. Patient states he is able to move his toes and the rest of his foot without difficulty. Patient denies N/V/F/D/C/SOB/CP. No other pedal complaints at this time. Objective - Vital Signs/Intake and Output Vital Signs (last 24 hours): Temp Pulse Resp BP Pulse Ox 98.2 F 81 20 138/94 H 98 05/12/17 07:33 05/12/17 07:33 05/12/17 07:33 05/12/17 07:33 05/12/17 07:33 - Labs Labs: 05/11/17 09:00 05/11/17 09:00 PT 13.5 Seconds (9.8-13.1) H 05/07/17 10:25 INR 1.2 (0.9-1.2) 05/07/17 10:25 APTT 32.0 Seconds (25.6-37.1) 05/07/17 09:00 - Constitutional Appears: Well, Non-toxic, No Acute Distress - Extremities Exam Additional comments: Vasc: DP and PT pulses palpable 2/4. CFT <3 seconds to all digits x5. TG warm to warm. No increase in warmth to dorsolateral foot. Neuro: Gross sensation intact. Derm: Erythema noted dorsal and lateral aspects of left foot, resolving. Red- purple discoloration previously noted to base of 4th digit has resolved, and no fluctuance to area of previous discoloration. Previous incision from drainage site located at base of 4th digit appears healed with overlying eschar. Peeling skin on dorsum of foot near base of 4th digit. Xerosis noted. No ecchymosis noted to dorsal/dorsomedial midfoot. No plantar ecchymosis noted. Ortho: No pain on palpation noted to dorsolateral left foot. No pain upon passive ROM 4th digit. Full ROM digits 1-5 without pain or crepitus noted. No pain on palpation to dorsum of 1st and 2nd met bases. Negative piano argueta test. Muscle strength 5/5 for all dorsiflexors, plantarflexors, inverters, and everters without pain noted. - Neurological Exam Neurological Exam: Alert, Awake, Oriented x3 - Psychiatric Exam Psychiatric exam: Normal Affect, Normal Mood Assessment and Plan - Assessment and Plan (Free Text) Assessment: 36 year old male with left foot abscess and cellulitis secondary to bug bite, resolving Plan: Patient seen and evaluated at bedside. Discussed with attending, Dr. Butts. Charts, labs, vitals reviewed = afebrile Left foot dressed with 4x4 and kerlix Patient to be discharged today on Bactrim DS and Clindamycin. Patient is to follow up with Dr. Butts at wound care clinic in 1 week ( @ 10:00AM) Podiatry will continue to follow patient closely while in house.
== END 2017-05-12 10:53 | disposition home or self-care (01) | DRG 278 ==
LOC: H.ER 05:48 → H.ERHOLD 06:31 → H.MEDSURG1 09:31
PROVIDERS: ADMIT Family Medicine Geriatric Medicine; ATTEND Family Medicine Geriatric Medicine
PROC: 0H9NXZZ Drainage of Left Foot Skin, External Approach (ICD-10-PCS; principal; 2017-05-07)
DX: L03.116 Cellulitis of left lower limb (principal); B95.62 Methicillin resistant Staphylococcus aureus infection as the cause of diseases classified elsewhere; F12.90 Cannabis use, unspecified, uncomplicated; R79.89 Other specified abnormal findings of blood chemistry; W57.XXXA Bitten or stung by nonvenomous insect and other nonvenomous arthropods, initial encounter

== ENCOUNTER 2019-02-24 14:11 | Emergency (ER) | payer MEDICAID, OTHER ==
[2019-02-24 14:26] VITALS: BP 138/87; RESP 16; TEMP 98.8
[2019-02-24] MEDS ORDERED: Tmp-Smz 800 mg-160 mg DS Tab PO STA (15:06)
--- NOTE | 2019-02-24 15:09 | ED PDOC ---
HPI: General Adult Time Seen by Provider: 02/24/19 14:39 Chief Complaint (Nursing): Wound Check Chief Complaint (Provider): RIGHT THIGH PAIN History Per: Patient (38 Y/O MALE HERE WITH RIGHT THIGH PAIN/SWELLING X 4 DAYS AFTER MOSQUITO BITE. STATES HE NOTES REDNESS/PAIN SINCE YESTEDAY AFTER GOING TO GYM. NOTES DISCHARGE FROM REGION.) Past Medical History Reviewed: Historical Data, Nursing Documentation, Vital Signs Vital Signs: Last Vital Signs Temp 98.8 F 02/24/19 14:23 Pulse 100 H 02/24/19 14:23 Resp 16 02/24/19 14:23 BP 138/87 02/24/19 14:23 Pulse Ox 100 02/24/19 14:23 Primary Care Provider: Non [facility] Provider, - Medical History PMH: Denies: Chronic Kidney Disease - Surgical History Surgical History: Appendectomy - Family History Family History: States: Unknown Family Hx - Home Medications Home Medications: Ambulatory Orders Medication Instructions Recorded Clindamycin [Cleocin] 450 mg PO QID #28 cap 05/12/17 Sulfamethoxazole/Trimethoprim 2 tab PO Q12 #40 tab 05/12/17 [Bactrim DS 800 mg-160 mg] Cephalexin [Keflex] 500 mg PO QID #28 capsule 02/24/19 Sulfamethoxazole/Trimethoprim 2 tab PO BID #28 tab 02/24/19 [Bactrim DS 800 mg-160 mg] - Allergies Allergies/Adverse Reactions: Allergies Allergy/AdvReac Type Severity Reaction Status Date / Time No Known Allergies Allergy Verified 05/04/17 14:06 Review of Systems ROS Statement: Except As Marked, All Systems Reviewed And Found Negative Skin: Positive for: Other (BITE/RASH) Physical Exam - Reviewed Nursing Documentation Reviewed: Yes Vital Signs Reviewed: Yes - Physical Exam Appears: Positive for: Well, Non-toxic, No Acute Distress Head Exam: Positive for: ATRAUMATIC, NORMAL INSPECTION, NORMOCEPHALIC Skin: Positive for: Normal Color, Warm, Rash (RIGHT THIGH WITH 2.5 CM REGION OF INDURATION ERYTHEMA AND NOTED SURROUNDING ERYTHEMA 6 CM) Eye Exam: Positive for: EOMI, Normal appearance, PERRL ENT: Positive for: Normal ENT Inspection Neck: Positive for: Normal, Painless ROM Cardiovascular/Chest: Positive for: Regular Rate, Rhythm Respiratory: Positive for: CNT, Normal Breath Sounds Gastrointestinal/Abdominal: Positive for: Normal Exam, Soft Back: Positive for: Normal Inspection Extremity: Positive for: Normal ROM Neurological/Psych: Positive for: Awake, Alert, Normal Tone - ECG O2 Sat by Pulse Oximetry: 100 - Progress ED Course And Treament: BACTRIM DS 2 TAB PO X 1 DOSE KEFLEX 500 MG X 1 DOSE TETANUS UP TO DATE. RETURN IN 24-48 HOURS FOR EVALUATION Disposition - Clinical Impression Clinical Impression: Cellulitis, Abscess, Insect bite - Patient ED Disposition Is Patient to be Admitted: No - Disposition Disposition: Routine/Home Disposition Time: 15:17 Condition: FAIR Prescriptions: Cephalexin [Keflex] 500 mg PO QID #28 capsule Sulfamethoxazole/Trimethoprim [Bactrim DS 800 mg-160 mg] 2 tab PO BID #28 tab Instructions: Skin Abscess, Cellulitis and Erysipelas (Skin Infections), Insect Bites and Stings (DC)
[2019-02-24] MEDS ORDERED: Tmp-Smz 800 mg-160 mg DS Tab ONE (15:22)
[2019-02-24 15:30] VITALS: PULSE 95; O2SAT 99
== END 2019-02-24 15:23 | disposition home or self-care (01) ==
LOC: H.ER 14:11
DX: L03.115 Cellulitis of right lower limb (principal); W57.XXXA Bitten or stung by nonvenomous insect and other nonvenomous arthropods, initial encounter

== ENCOUNTER 2019-02-26 14:16 | Inpatient (IN) | payer OTHER ==
--- NOTE | 2019-02-26 15:06 | ED PDOC ---
Lower Extremity Pain/Injury Time Seen by Provider: 02/26/19 14:46 Chief Complaint (Nursing): Abnormal Skin Integrity Chief Complaint (Provider): Right thigh wound History Per: Patient History/Exam Limitations: no limitations Additional Complaint(s): 38 y/o male, with no significant past medical history, presents to the ER for reevaluation of a right thigh infection. Patient was seen in the ER on 02/24 for evaluation of a right thigh wound that began as a possible mosquito bite. Patient was given a prescription for Bactrim and Keflex which he has been taking as prescribed. He states he began having subjective fevers yesterday and has been taking Tylenol 500mg PO as needed for pain with improvement. He states re dness around wound has improved as well. Of note, patient was treated for MRSA of the left foot in 2017 requiring hospitalization. PMD: none provided Past Medical History Reviewed: Historical Data, Nursing Documentation, Vital Signs Vital Signs: Last Vital Signs Temp 99.2 F 02/26/19 14:36 Pulse 106 H 02/26/19 14:36 Resp 20 02/26/19 14:36 BP 130/80 02/26/19 14:36 Pulse Ox 99 02/26/19 14:36 Primary Care Provider: DoctorSurjit - Medical History PMH: No Chronic Diseases Denies: Chronic Kidney Disease - Surgical History Surgical History: Appendectomy - Family History Family History: States: Unknown Family Hx - Immunization History Hx Tetanus Toxoid Vaccination: No Hx Influenza Vaccination: No Hx Pneumococcal Vaccination: No - Home Medications Home Medications: Ambulatory Orders Medication Instructions Recorded Cephalexin [Keflex] 500 mg PO QID #28 capsule 02/24/19 Sulfamethoxazole/Trimethoprim 2 tab PO BID #28 tab 02/24/19 [Bactrim DS 800 mg-160 mg] - Allergies Allergies/Adverse Reactions: Allergies Allergy/AdvReac Type Severity Reaction Status Date / Time No Known Allergies Allergy Verified 02/26/19 14:36 Review of Systems ROS Statement: Except As Marked, All Systems Reviewed And Found Negative Constitutional: Positive for: Fever Skin: Positive for: Other (Infection to right thigh) Physical Exam - Reviewed Nursing Documentation Reviewed: Yes Vital Signs Reviewed: Yes - Physical Exam Appears: Positive for: Non-toxic Extremity: Positive for: Other (Right anterior thigh: approximately 1cm wound draining purulent material with associated erythema (area of erythema about 6cm in diameter); (+) induration, (-) fluctuance) Neurological/Psych: Positive for: Alert, Oriented - Laboratory Results Result Diagrams: 02/26/19 15:20 02/26/19 15:20 - ECG O2 Sat by Pulse Oximetry: 99 (RA) Pulse Ox Interpretation: Normal Medical Decision Making Medical Decision Making: Initial Impression: purulent cellulitis; r/o sepsis Initial Plan: --Lactate VBG --CMP --CBC --Blood culture --Wound culture 15:36 Lactate VBG is 1.4 16:01 WBC 19.4 Patient meets sepsis criteria. Patient to be admitted under Dr. Sauceda to med surg. 16:[address] Sauceda. Care transferred at this time. Clindamycin 600 IV x1 ordered. Patient to be admitted. Scribe Attestation: Documented by Duong Velasco acting as a scribe for Isi MAHONEY. Provider Scribe Attestation: All medical record entries made by the Scribe were at my direction and personally dictated by me. I have reviewed the chart and agree that the record accurately reflects my personal performance of the history, physical exam, medical decision making, and the department course for this patient. I have also personally directed, reviewed, and agree with the discharge instructions and disposition. Disposition - Clinical Impression Clinical Impression: Sepsis, Cellulitis of left thigh - Patient ED Disposition Is Patient to be Admitted: Yes Discussed With DrDenis: John Sauceda Doctor Will See Patient In The: Hospital Counseled Patient/Family Regarding: Studies Performed, Diagnosis - Disposition Disposition: Transfer of Care Disposition Time: 16:06 Condition: FAIR
[2019-02-26 15:33] LABS: BASO # 0.1 K/uL (0.0-0.2); BASO % 0.3 % (0.0-2.0); EOS # 0.2 K/uL (0.0-0.7); EOS % 0.9 % (0.0-4.0); HEMOGLOBIN 12.6 g/dL (12.0-18.0); LYMPH % 5.4 % (20.0-40.0); MEAN CELL VOLUME 93.2 fl (80.0-94.0); MEAN CORPUSCULAR HEMOGLOBIN 30.4 pg (27.0-31.0); MEAN CORPUSCULAR HGB CONC 32.7 g/dL (33.0-37.0); MONO # 1.2 K/uL (0.0-0.8); MONO % 6.3 % (0.0-10.0); NEUT # 16.9 K/uL (1.8-7.0); NEUT % 87.1 % (50.0-75.0); PLATELET COUNT 284 K/uL (130-400); RBC 4.13 Mil/uL (4.40-5.90); RED CELL DISTRIBUTION WIDTH 13.6 % (11.5-14.5); WHITE BLOOD COUNT 19.4 K/uL (4.8-10.8)
[2019-02-26 15:34] LABS: VENOUS BLOOD GAS BASE EXCESS -0.4 mmol/L (0.0-2.0); VENOUS BLOOD GAS PCO2 45 mmHg (40-60); VENOUS BLOOD GAS PO2 29 mm/Hg (30-55); VENOUS BLOOD PH 7.36 (7.32-7.43)
[2019-02-26 15:44] LABS: ALB/GLOB RATIO 1.2 (1.0-2.1); ALBUMIN 4.8 g/dL (3.5-5.0); ALT/SGPT 45 U/L (21-72); AST/SGOT 33 U/L (17-59); BLOOD UREA NITROGEN 18 mg/dl (9-20); CALCIUM 9.3 mg/dL (8.4-10.2); GFR NON-AFRICAN AMERICAN 52
[2019-02-26] MEDS ORDERED: Clindamycin 600mg/50ml NS 600 MG/50 ML BAG IVPB STA (16:06)
[2019-02-26] MEDS ORDERED: Clindamycin 600mg/50ml D5W 600 MG/50 ML VIAL IVPB STA (16:38)
[2019-02-26 18:09] LABS: BANDS 2 % (0-2); LYMPHOCYTE 8 % (20-50); MONOCYTE 5 % (0-10); NEUTROPHIL 85 % (42-75); TOTAL CELLS COUNTED 100
[2019-02-26 18:11] LABS: PLATELET ESTIMATE NORMAL (NORMAL)
[2019-02-26 18:12] LABS: ANISOCYTOSIS SLIGHT
[2019-02-27] MEDS: Clindamycin 600mg/50ml NS 600 MG/50 ML BAG IVPB SCH ×3 (02:06→16:30)
[2019-02-27 07:12] LABS: HEMOGLOBIN 11.2 g/dL (12.0-18.0); MEAN CORPUSCULAR HEMOGLOBIN 30.4 pg (27.0-31.0); MEAN CORPUSCULAR HGB CONC 32.7 g/dL (33.0-37.0); RBC 3.69 Mil/uL (4.40-5.90); RED CELL DISTRIBUTION WIDTH 13.4 % (11.5-14.5); WHITE BLOOD COUNT 17.7 K/uL (4.8-10.8)
[2019-02-27 07:47] LABS: ALB/GLOB RATIO 1.2 (1.0-2.1); ALBUMIN 4.3 g/dL (3.5-5.0); ALT/SGPT 46 U/L (21-72); AST/SGOT 39 U/L (17-59); BLOOD UREA NITROGEN 22 mg/dl (9-20); CALCIUM 9.1 mg/dL (8.4-10.2); GFR NON-AFRICAN AMERICAN 56
[2019-02-27] MEDS ORDERED: Meropenem 1 GM in Sodium Chloride 0.9% 100 ML IVPB SCH (09:45)
--- NOTE | 2019-02-27 16:42 | CP.PCM.PN ---
Subjective - Date & Time of Evaluation Date of Evaluation: 02/27/19 Time of Evaluation: 16:40 - Subjective Subjective: I D NOTE PATIENT EXAMINED ,EMR REVIEWED FULL CONSULT DICTATED HAVE ADDED SOLUMEDROL TO RX Objective - Vital Signs/Intake and Output Vital Signs (last 24 hours): Temp Pulse Resp BP Pulse Ox 98.1 F 96 H 18 133/81 98 02/27/19 16:17 02/27/19 16:17 02/27/19 16:17 02/27/19 16:17 02/27/19 16:17 - Medications Medications: Current Medications Acetaminophen (Tylenol 325mg Tab) 650 mg PO Q4 PRN PRN Reason: Fever >100.4 F Acetaminophen (Tylenol 325mg Tab) 650 mg PO Q4 PRN PRN Reason: Pain, Mild (1-3) Last Admin: 02/27/19 04:09 Dose: 650 mg Clindamycin Phosphate (Cleocin 600mg/50ml Ns) 600 mg in 50 mls @ 50 mls/hr IVPB Q8H [facility]; Protocol Last Admin: 02/27/19 16:30 Dose: 50 mls/hr Meropenem 1 gm/ Sodium (Chloride) 100 mls @ 100 mls/hr IVPB Q12 [facility]; Protocol Last Admin: 02/27/19 11:59 Dose: 100 mls/hr Methylprednisolone (Solu-Medrol) 40 mg IVP Q12 [facility] - Labs Labs: 02/27/19 05:10 02/27/19 05:10
--- NOTE | 2019-02-27 17:20 | CP.PCM.CON ---
History of Present Illness - History of Present Illness History of Present Illness: General Surgery Consult Note for Dr. Julien Consult: Right Thigh Cellulitis HPI: 38 year old male, no significant past medical history, presents with right thigh cellulitis. Patient states he was sleeping in bed when he felt a bug bite, possible a spider. The area became red, warm, and uncomfortable however it has improved since initial symptoms. It has been draining serous fluid. Patient had come to the ED 02/24 for evaluation and was given Bactrim and Keflex which he was taking at home. Shortly after, he began having fevers. He took Tylenol which helped with the fevers and pain. Of note, patient was treated for MRSA of the l eft foot in 2017 requiring hospitalization. PMH: Denies PSH: Appendectomy FH: Noncontributory SH: Denies tobacco, alcohol, drugs ALL: NKDA Meds: See MAR Review of Systems - Constitutional Constitutional: Fever. absent: Chills, Night Sweats - EENT Eyes: absent: Blurred Vision, Change in Vision Nose/Mouth/Throat: absent: Nasal Congestion, Nasal Discharge - Cardiovascular Cardiovascular: absent: Chest Pain, Dyspnea - Respiratory Respiratory: absent: Cough, Dyspnea - Gastrointestinal Gastrointestinal: absent: Abdominal Pain, Nausea, Vomiting - Genitourinary Genitourinary: absent: Change in Urinary Stream, Difficulty Urinating - Musculoskeletal Musculoskeletal: absent: Back Pain, Muscle Cramps - Integumentary Integumentary: Changing Lesions, Erythema, Swelling - Neurological Neurological: absent: Confusion, Dizziness - Psychiatric Psychiatric: absent: Anxiety, Depression Past Patient History - Infectious Disease Hx of Infectious Diseases: None - Past Medical History & Family History Past Medical History?: No - Past Social History Smoking Status: Never Smoked - CARDIAC Hx Cardiac Disorders: No - PULMONARY Hx Respiratory Disorders: No - NEUROLOGICAL Hx Neurological Disorder: No - HEENT Hx HEENT Problems: No - RENAL Hx Chronic Kidney Disease: No - ENDOCRINE/METABOLIC Hx Endocrine Disorders: No - HEMATOLOGICAL/ONCOLOGICAL Hx Blood Disorders: No Hx AIDS: No Hx Human Immunodeficiency Virus (HIV): No - INTEGUMENTARY Hx Dermatological Problems: No - MUSCULOSKELETAL/RHEUMATOLOGICAL Hx Musculoskeletal Disorders: No Hx Falls: No - GASTROINTESTINAL Hx Gastrointestinal Disorders: No - GENITOURINARY/GYNECOLOGICAL Hx Genitourinary Disorders: No - PSYCHIATRIC Hx Psychophysiologic Disorder: No Hx Substance Use: No - SURGICAL HISTORY Hx Surgeries: Yes Hx Appendectomy: Yes - ANESTHESIA Hx Anesthesia: Yes Hx Anesthesia Reactions: No Hx Malignant Hyperthermia: No Has any member of the family had a problem w/ anesthesia?: No Meds Allergies/Adverse Reactions: Allergies Allergy/AdvReac Type Severity Reaction Status Date / Time No Known Allergies Allergy Verified 02/26/19 14:36 - Medications Medications: Current Medications Acetaminophen (Tylenol 325mg Tab) 650 mg PO Q4 PRN PRN Reason: Fever >100.4 F Acetaminophen (Tylenol 325mg Tab) 650 mg PO Q4 PRN PRN Reason: Pain, Mild (1-3) Last Admin: 02/27/19 04:09 Dose: 650 mg Clindamycin Phosphate (Cleocin 600mg/50ml Ns) 600 mg in 50 mls @ 50 mls/hr IVPB Q8H PERNELL; Protocol Last Admin: 02/27/19 16:30 Dose: 50 mls/hr Meropenem 1 gm/ Sodium (Chloride) 100 mls @ 100 mls/hr IVPB Q12 PERNELL; Protocol Last Admin: 02/27/19 11:59 Dose: 100 mls/hr Methylprednisolone (Solu-Medrol) 40 mg IVP Q12 PERNELL Physical Exam - Constitutional Appears: Well, Non-toxic, No Acute Distress - Head Exam Head Exam: ATRAUMATIC, NORMAL INSPECTION, NORMOCEPHALIC - Eye Exam Eye Exam: EOMI - ENT Exam ENT Exam: Mucous Membranes Moist - Respiratory Exam Respiratory Exam: Clear to Auscultation Bilateral, NORMAL BREATHING PATTERN. absent: Wheezes, Respiratory Distress - Cardiovascular Exam Cardiovascular Exam: REGULAR RHYTHM - GI/Abdominal Exam GI & Abdominal Exam: Normal Bowel Sounds, Soft. absent: Tenderness - Extremities Exam Extremities exam: Positive for: pedal pulses present. Negative for: calf tenderness - Neurological Exam Neurological exam: Alert, Oriented x3 - Psychiatric Exam Psychiatric exam: Normal Affect, Normal Mood - Skin Additional comments: Right lateral thigh erythema, swelling, with blanchable wound serous drainage noted with excoriations around puncture site Results - Vital Signs Recent Vital Signs: Last Vital Signs Temp 98.1 F 02/27/19 16:17 Pulse 96 H 02/27/19 16:17 Resp 18 02/27/19 16:17 BP 133/81 02/27/19 16:17 Pulse Ox 98 05/11/19 16:17 - Labs Result Diagrams: 02/27/19 05:10 02/27/19 05:10 Labs: Laboratory Results - last 24 hr 02/26/19 02/27/19 02/27/19 15:20 05:10 05:10 WBC 17.7 H RBC 3.69 L Hgb 11.2 L Hct 34.3 L MCV 93.0 MCH 30.4 MCHC 32.7 L RDW 13.4 Plt Count 295 Neutrophils % (Manual) 85 H Band Neutrophils % 2 Lymphocytes % (Manual) 8 L Monocytes % (Manual) 5 Platelet Estimate Normal Anisocytosis (manual) Slight Sodium 136 Potassium 4.5 Chloride 101 Carbon Dioxide 24 Anion Gap 16 BUN 22 H Creatinine 1.4 Est GFR ( Amer) > 60 Est GFR (Non-Af Amer) 56 Random Glucose 96 Calcium 9.1 Total Bilirubin 0.8 AST 39 ALT 46 Alkaline Phosphatase 114 Total Protein 7.9 Albumin 4.3 Globulin 3.6 Albumin/Globulin Ratio 1.2 Assessment & Plan - Assessment and Plan (Free Text) Assessment: 38M w/ cellulitis after spider bite Plan: Dressing - 4x4 gauze with bacitracin Warm compresses IV Abx - MRSA coverage Tetanus booster Monitor area for improving Wound openly draining - no need for I&D at this time D/w Dr. Wily Desir PGY1
[2019-02-27] MEDS: Bacitracin OINT 15GM TOP SCH (18:25)
--- NOTE | 2019-02-27 20:59 | CP.PCM.PCO ---
Addendum Addendum: 02/27/19 20:58 I was notified by nurse that patient was having pruritic urticaria after being given solumedrol 40mg IVP I evaluated patient he reports he is allergic only to dog hair, never had an allergy to medication and this is the first time he received solumedrol. Pt declined any SOB or tingling/itchiness of throat, swelling of tongue. PE: multiple wheals approximately 1cm in size, noted on arms bilaterally, L cheek, forehead, and chest. Gave patient Benadryl 25mg once and Pepcid 40mg once. Will reevaluate patient after medication administered
[2019-02-27] MEDS ORDERED: MethylPREDNISolone 40 mg Vial IVP SCH (21:00)
[2019-02-27] MEDS ORDERED: methylPREDNISolone 40 MG in Sodium Chloride 0.9% 50 ML IVPB SCH (21:00)
[2019-02-27] MEDS: Meropenem 1 GM in Sodium Chloride 0.9% 100 ML IVPB SCH (21:17)
[2019-02-28] MEDS: Clindamycin 600mg/50ml NS 600 MG/50 ML BAG IVPB SCH ×3 (00:39→16:30)
--- NOTE | 2019-02-28 06:37 | CP.PCM.PN ---
Subjective - Date & Time of Evaluation Date of Evaluation: 02/28/19 Time of Evaluation: 06:34 - Subjective Subjective: Surgery Progress Note for Dr. Julien 38M seen and evaluated at bedside this morning. No acute events overnight. No complaints this morning. Patient states wound redness is improving, pain has improved as well. Wound continues to drain serous fluid. He is applying bacitracin w/ nurse. Denies f/c, n/v/d, SOB, CP, or urinary symptoms. Objective - Vital Signs/Intake and Output Vital Signs (last 24 hours): Temp Pulse Resp BP Pulse Ox 98.5 F 80 18 120/78 95 02/28/19 00:48 02/28/19 00:48 02/28/19 00:48 02/28/19 00:48 02/28/19 00:48 - Medications Medications: Current Medications Acetaminophen (Tylenol 325mg Tab) 650 mg PO Q4 PRN PRN Reason: Fever >100.4 F Acetaminophen (Tylenol 325mg Tab) 650 mg PO Q4 PRN PRN Reason: Pain, Mild (1-3) Last Admin: 02/27/19 04:09 Dose: 650 mg Bacitracin (Bacitracin Oint) 1 applic TOP DAILY PERNELL Last Admin: 02/27/19 18:25 Dose: 1 applic Diphenhydramine HCl (Benadryl) 50 mg PO Q12 PERNELL Stop: 03/01/19 23:59 Clindamycin Phosphate (Cleocin 600mg/50ml Ns) 600 mg in 50 mls @ 50 mls/hr IVPB Q8H PERNELL; Protocol Last Admin: 02/28/19 00:39 Dose: 50 mls/hr Meropenem 1 gm/ Sodium (Chloride) 100 mls @ 100 mls/hr IVPB Q12H PERNELL; Protocol Last Admin: 02/27/19 21:17 Dose: 100 mls/hr - Labs Labs: 02/27/19 05:10 02/27/19 05:10 - Constitutional Appears: Well, Non-toxic, No Acute Distress - Head Exam Head Exam: ATRAUMATIC, NORMAL INSPECTION, NORMOCEPHALIC - Eye Exam Eye Exam: EOMI - ENT Exam ENT Exam: Mucous Membranes Moist - Respiratory Exam Respiratory Exam: Clear to Ausculation Bilateral, NORMAL BREATHING PATTERN - Cardiovascular Exam Cardiovascular Exam: REGULAR RHYTHM, +S1, +S2. absent: Murmur - GI/Abdominal Exam GI & Abdominal Exam: Soft, Normal Bowel Sounds. absent: Tenderness - Extremities Exam Extremities Exam: absent: Calf Tenderness, Pedal Edema - Neurological Exam Neurological Exam: Alert, Awake, Oriented x3 - Psychiatric Exam Psychiatric exam: Normal Affect, Normal Mood - Skin Additional comments: right thigh wound erythema and mild induration, improving seropurulent drainage noted 4x4 dressing w/ topical antibiotic applied c/d/i Assessment and Plan - Assessment and Plan (Free Text) Assessment: 38M w/ right lateral thigh cellulitis with spontaneous drainage of seropurulent fluid Plan: Continue bacitracin Dressing - 4x4 gauze, allow spontaneous drainage of wound Monitor erythema IV Abx per ID No further surgical intervention indicated at this present time Hemal Desir PGY1
[2019-02-28] MEDS: Bacitracin OINT 15GM TOP SCH (08:35)
[2019-02-28] MEDS: Meropenem 1 GM in Sodium Chloride 0.9% 100 ML IVPB SCH ×2 (09:40→21:02)
[2019-03-01] MEDS: Clindamycin 600mg/50ml NS 600 MG/50 ML BAG IVPB SCH ×3 (01:23→16:29)
--- NOTE | 2019-03-01 09:06 | CON ---
DATE: 02/27/2019 INFECTIOUS DISEASE CONSULTATION HISTORY OF PRESENT ILLNESS: He is a 38-year-old who has no significant past medial history who came to the ER mid week on Friday for evaluation of a right thigh infection. Apparently, he was sitting down watching TV, and he felt a bite and then knocked whatever the insect was of, but he never found it. The sting became swollen, worse, and erythematous almost immediately. He developed some fever and chills. When he was seen in the ER, he was put on multiple antibiotics orally and sent home to return if there was any problem. He returned yesterday as the wound had gotten worse and with no improvement, he was admitted. At present time, he was put on clindamycin and vancomycin. PHYSICAL EXAMINATION: GENERAL: The patient is alert, cooperative, oriented to time and place. HEENT: Within normal limits. NECK: Supple. LUNGS: Clear. HEART: Regular sinus rhythm. ABDOMEN: Soft. Positive bowel sounds. No organomegaly. EXTREMITIES: Right lateral thigh has a significant erythematous area with what appears to be a wound entrance whether it was an insect bite or not, mostly likely a spider bite, I cannot make the judgement on that. LABORATORY DATA: White count was 19.4, today is 17.7. Creatinine is 1.4 and his GFR is 56. IMPRESSION AND PLAN: Because of his glomerular filtration rate being 56, we will not treat with vancomycin at the moment and just treat with clindamycin 600 mg intravenous piggyback every 8 hours. We will also add meropenem 1 g intravenous piggyback every 12 hours. After seeing the wound, I also discussed with the patient that we will be adding Solu-Medrol 40 mg intravenous piggyback every 12 hours. Yuniel Delgado MD
--- NOTE | 2019-03-01 09:10 | CP.PCM.HP ---
History of Present Illness - History of Present Illness History of Present Illness: This is a 38 y/o male with no significant medical hx a was admitted last night for worsening of redness and swelling of the right thigh. Noted to have cellulitis and abscess and had fever. He was started on Iv antibiotics. Patient was recently at the ER for redness of thigh after a mosquito bite and was sent home on Bactrim and Keflex which he took as prescribed. He has no hx of DM 2. He had a MRSA infection of the left thigh 2 years ago and was hospitalized for iv antibiotics. Present on Admission - Present on Admission Any Indicators Present on Admission: No History of DVT/PE: No History of Uncontrolled Diabetes: No Urinary Catheter: No Decubitus Ulcer Present: No Past Patient History - Infectious Disease Hx of Infectious Diseases: None - Past Medical History & Family History Past Medical History?: No - Past Social History Smoking Status: Never Smoked - CARDIAC Hx Cardiac Disorders: No - PULMONARY Hx Respiratory Disorders: No - NEUROLOGICAL Hx Neurological Disorder: No - HEENT Hx HEENT Problems: No - RENAL Hx Chronic Kidney Disease: No - ENDOCRINE/METABOLIC Hx Endocrine Disorders: No - HEMATOLOGICAL/ONCOLOGICAL Hx Blood Disorders: No Hx AIDS: No Hx Human Immunodeficiency Virus (HIV): No - INTEGUMENTARY Hx Dermatological Problems: No - MUSCULOSKELETAL/RHEUMATOLOGICAL Hx Musculoskeletal Disorders: No Hx Falls: No - GASTROINTESTINAL Hx Gastrointestinal Disorders: No - GENITOURINARY/GYNECOLOGICAL Hx Genitourinary Disorders: No - PSYCHIATRIC Hx Psychophysiologic Disorder: No Hx Substance Use: No - SURGICAL HISTORY Hx Surgeries: Yes Hx Appendectomy: Yes - ANESTHESIA Hx Anesthesia: Yes Hx Anesthesia Reactions: No Hx Malignant Hyperthermia: No Has any member of the family had a problem w/ anesthesia?: No Meds Allergies/Adverse Reactions: Allergies Allergy/AdvReac Type Severity Reaction Status Date / Time methylprednisolone Allergy Mild URTICARIA, Verified 02/28/19 20:20 [From Solu-Medrol] itchiness Physical Exam - Head Exam Head Exam: NORMAL INSPECTION - Eye Exam Eye Exam: Normal appearance - ENT Exam ENT Exam: Mucous Membranes Moist - Neck Exam Neck exam: Positive for: Normal Inspection - Respiratory Exam Respiratory Exam: Clear to Auscultation Bilateral - GI/Abdominal Exam GI & Abdominal Exam: Normal Bowel Sounds - Neurological Exam Neurological exam: CN II-XII Intact - Psychiatric Exam Psychiatric exam: Normal Mood - Skin Skin Exam: Dry Additional comments: wound with purulent discharge on the right thigh with surrounding erythema and swelling. Results - Vital Signs Recent Vital Signs: Last Vital Signs Temp 97.8 F 03/01/19 08:19 Pulse 92 H 03/01/19 08:19 Resp 20 03/01/19 08:19 BP 130/89 03/01/19 08:19 Pulse Ox 95 03/01/19 08:19 - Labs Result Diagrams: 02/27/19 05:10 02/27/19 05:10 Labs: Laboratory Results - last 24 hr 02/27/19 02/28/19 18:30 06:10 Hemoglobin A1c 5.0 Procalcitonin 0.09 L Assessment & Plan (1) Abscess of right thigh Status: Acute (2) Cellulitis of right thigh Status: Acute - Assessment and Plan (Free Text) Plan: Start IV antibiotics clindamycin started ID eval C and S check A1c cbc
--- NOTE | 2019-03-01 09:34 | CP.PCM.PN ---
Subjective - Date & Time of Evaluation Date of Evaluation: 02/28/19 Time of Evaluation: 11:30 - Subjective Subjective: Patient remains stable Seen by surgery yesterday and a significant amount of purulent material was expressed . Has no fever Noted significant improvement of redness and swelling C and S showed MRSA sens to current meds and to Cipro. Objective - Vital Signs/Intake and Output Vital Signs (last 24 hours): Temp Pulse Resp BP Pulse Ox 97.8 F 92 H 20 130/89 95 03/01/19 08:19 03/01/19 08:19 03/01/19 08:19 03/01/19 08:19 03/01/19 08:19 - Medications Medications: Current Medications Acetaminophen (Tylenol 325mg Tab) 650 mg PO Q4 PRN PRN Reason: Fever >100.4 F Acetaminophen (Tylenol 325mg Tab) 650 mg PO Q4 PRN PRN Reason: Pain, Mild (1-3) Last Admin: 02/27/19 04:09 Dose: 650 mg Bacitracin (Bacitracin Oint) 1 applic TOP DAILY PERNELL Last Admin: 02/28/19 08:35 Dose: 1 applic Diphenhydramine HCl (Benadryl) 50 mg PO Q12 PERNELL Stop: 03/01/19 23:59 Last Admin: 02/28/19 20:22 Dose: 50 mg Clindamycin Phosphate (Cleocin 600mg/50ml Ns) 600 mg in 50 mls @ 50 mls/hr IVPB Q8H PERNELL; Protocol Last Admin: 03/01/19 01:23 Dose: 50 mls/hr Meropenem 1 gm/ Sodium (Chloride) 100 mls @ 100 mls/hr IVPB Q12H PERNELL; Protocol Last Admin: 02/28/19 21:02 Dose: 100 mls/hr - Labs Labs: 02/27/19 05:10 02/27/19 05:10 - Head Exam Head Exam: NORMAL INSPECTION - Eye Exam Eye Exam: Normal appearance - ENT Exam ENT Exam: Mucous Membranes Moist - Respiratory Exam Respiratory Exam: Clear to Ausculation Bilateral - Cardiovascular Exam Cardiovascular Exam: REGULAR RHYTHM - GI/Abdominal Exam GI & Abdominal Exam: Normal Bowel Sounds - Neurological Exam Neurological Exam: Awake, Oriented x3 Assessment and Plan (1) Abscess of right thigh Status: Acute (2) Cellulitis of right thigh Status: Acute - Assessment and Plan (Free Text) Plan: Cont meds Cont tx Follow up A1c report
[2019-03-01] MEDS: Meropenem 1 GM in Sodium Chloride 0.9% 100 ML IVPB SCH ×2 (09:49→22:08)
[2019-03-01] MEDS: Bacitracin OINT 15GM TOP SCH (09:49)
[2019-03-01 11:20] LABS: BASO % 0.3 % (0.0-2.0); EOS # 0.3 K/uL (0.0-0.7); EOS % 2.9 % (0.0-4.0); HEMOGLOBIN 12.9 g/dL (12.0-18.0); LYMPH % 21.5 % (20.0-40.0); MEAN CELL VOLUME 93.4 fl (80.0-94.0); MEAN CORPUSCULAR HEMOGLOBIN 30.9 pg (27.0-31.0); MEAN CORPUSCULAR HGB CONC 33.1 g/dL (33.0-37.0); MEAN PLATELET VOLUME 7.9 fl (7.2-11.7); MONO # 0.7 K/uL (0.0-0.8); MONO % 7.6 % (0.0-10.0); NEUT # 6.3 K/uL (1.8-7.0); NEUT % 67.7 % (50.0-75.0); RBC 4.16 Mil/uL (4.40-5.90); RED CELL DISTRIBUTION WIDTH 13.6 % (11.5-14.5); WHITE BLOOD COUNT 9.3 K/uL (4.8-10.8)
--- NOTE | 2019-03-01 19:23 | CP.PCM.PN ---
Subjective - Date & Time of Evaluation Date of Evaluation: 03/01/19 Time of Evaluation: 10:00 - Subjective Subjective: patient seen and examined at bedside. Interim events noted No complaints offered at this time denies cp/sob/fever/chills. available diagnostic data reviewed Review of Systems All systems: reviewed and no additional remarkable complaints except mentioned above Objective Vital Signs Stable - Constitutional Appears: Non-toxic, No Acute Distress Head Exam: NORMAL INSPECTION Eye Exam: Normal appearance Respiratory Exam: NORMAL BREATHING PATTERN Cardiovascular Exam: +S1, +S2 GI & Abdominal Exam: Soft Neurological Exam: Alert, Awake Psychiatric exam: Normal Affect, Normal Mood Skin Exam: Normal Color, Warm Assessment and Plan monitor vitals monitor labs Cont meds Cont tx consultants appreciated input pending abx management rest of plan as ordered Objective - Vital Signs/Intake and Output Vital Signs (last 24 hours): Temp Pulse Resp BP Pulse Ox 97.9 F 84 20 124/82 95 03/01/19 15:52 03/01/19 15:52 03/01/19 15:52 03/01/19 15:52 03/01/19 15:52 - Medications Medications: Current Medications Acetaminophen (Tylenol 325mg Tab) 650 mg PO Q4 PRN PRN Reason: Fever >100.4 F Acetaminophen (Tylenol 325mg Tab) 650 mg PO Q4 PRN PRN Reason: Pain, Mild (1-3) Last Admin: 02/27/19 04:09 Dose: 650 mg Bacitracin (Bacitracin Oint) 1 applic TOP DAILY PERNELL Last Admin: 03/01/19 09:49 Dose: 1 applic Diphenhydramine HCl (Benadryl) 50 mg PO Q12 PERNELL Stop: 03/01/19 23:59 Last Admin: 03/01/19 09:49 Dose: Not Given Clindamycin Phosphate (Cleocin 600mg/50ml Ns) 600 mg in 50 mls @ 50 mls/hr IVPB Q8H PERNELL; Protocol Last Admin: 03/01/19 16:29 Dose: 50 mls/hr Meropenem 1 gm/ Sodium (Chloride) 100 mls @ 100 mls/hr IVPB Q12H PERNELL; Protocol Last Admin: 03/01/19 09:49 Dose: 100 mls/hr - Labs Labs: 03/01/19 10:40 02/27/19 05:10
[2019-03-02 00:01] VITALS: TEMP 98.2
[2019-03-02] MEDS: Clindamycin 600mg/50ml NS 600 MG/50 ML BAG IVPB SCH ×2 (00:55→09:07)
[2019-03-02 08:10] VITALS: BP 135/89; PULSE 78; RESP 20; O2SAT 97
[2019-03-02] MEDS: Bacitracin OINT 15GM TOP SCH (09:08)
[2019-03-02] MEDS: Meropenem 1 GM in Sodium Chloride 0.9% 100 ML IVPB SCH (09:08)
--- NOTE | 2019-03-02 09:53 | CP.PCM.PCO ---
Assessment & Plan - Assessment and Plan (Free Text) Assessment: pt. doing well this am; reports improvement of R thigh cellulitis denies fever, chills, n/v/d wound cx + mrsa, sensitivity note and /Dw pt. cleared for d/c on Clindamycin 300 mg po bid x 1 weeks pt. to f/u with pmd in 1 week
[2019-03-03 21:37] LABS: LYME IGG NEGATIVE (NEGATIVE)
[2019-03-03 21:43] LABS: LYME IGM NEGATIVE (NEGATIVE)
--- NOTE | 2019-03-08 11:51 | PQF ---
PROVIDER RESPONSE TEXT: Sepsis ruled out REVIEWER QUERY TEXT: Conflicting Documentation Clarification A single mention of Sepsis is listed in the ER record and then the diagnosis is dropped. Please also document if the condition is: -- Confirmed and current -- Confirmed, treated and resolved -- Ruled out -- Other, please specify Pulse:106->90->90->90->91->94->96 ER record includes; began having subjective fevers yesterday ROS:Constitutional: (+) for: Fever H and P includes: Noted to have cellulitis and abscess and had fever ER: reeval of a rt thigh infection; in the ER on 02/24 for eval of a rt thigh wound that began as a po ssible mosquito bite: given a prescription for Bactrim and Keflex has been taking as prescribed; beg an having subjective fevers yesterday and has been taking Tylenol for pain. ROS:Constitutional: (+) for: Fever PE: Extrem.: (+) for: Other (Rt. anterior thigh: approximately 1cm wound draining purulent material w ith ass erythema (area of erythema about 6cm in diameter); (+) induration, - meets sepsis criteria Clinical Impression: Sepsis, Cellulitis of left thigh Admission order: Admitting dx.:Cellulitus, Sepsis H and P: Signed: admitted last night for worsening of redness and swelling of the rt thigh. Noted to have cellulitis and abscess and had fever. He was started on Iv antibiotics; recently at the ER for redness of thigh and ws sent home on Bactrim and 02/27 ID: Rt. lateral thigh has a significant erythematous area with what appears to be a wound entra nce whether it was an insect bite or not, mostly likely a spider bite, I cannot make the judgement o n that. Plan: Because of his glomerular filtration rate being 56, we will not treat with vancomycin at the [facility] and just treat with clindamycin 600 mg intravenous piggyback every 8 hours.We will also add me ropenem 1 g intravenous piggyback every 12 hours .After seeing the wound, I also discussed with the p atient that we will be adding Solu-Medrol 40 mg intravenous piggyback every 12 hours. The patient's Clinical Indicators include: -- Query created by: Jalyn Cabrera on 03/01/2019 9:53 AM Electronically signed by: John Sauceda MD 03/08/2019 11:48 AM
== END 2019-03-02 12:42 | disposition home or self-care (01) | DRG 278 ==
LOC: H.ER 14:16 → H.ERHOLD 16:34 → H.MEDSURG1 02-27 00:02
PROVIDERS: ADMIT Family Medicine; ATTEND Family Medicine
DX: L03.115 Cellulitis of right lower limb (principal); T63.301A Toxic effect of unspecified spider venom, accidental (unintentional), initial encounter; L02.415 Cutaneous abscess of right lower limb; B95.62 Methicillin resistant Staphylococcus aureus infection as the cause of diseases classified elsewhere; L50.0 Allergic urticaria; T38.0X5A Adverse effect of glucocorticoids and synthetic analogues, initial encounter; Z86.14 Personal history of Methicillin resistant Staphylococcus aureus infection; Y92.238 Other place in hospital as the place of occurrence of the external cause

== ENCOUNTER 2019-03-10 14:02 | Emergency (ER) | payer OTHER ==
[2019-03-10 14:08] VITALS: BP 127/77; RESP 16; TEMP 98.4; O2SAT 98
[2019-03-10 15:04] VITALS: PULSE 94
--- NOTE | 2019-03-10 15:04 | ED PDOC ---
HPI: Wound Care - HPI Time Seen by Provider: 03/10/19 14:16 Chief Complaint (Nursing): Wound Check Chief Complaint (Provider): Wound Check History Per: Patient Exam Limitations: no limitations Onset/Duration Of Symptoms: Days (x7) Current Symptoms Are (Timing): Better Additional Complaint(s): 38 year old male presents to the ED for a wound check. Patient states he was recently admitted for cellulitis which started off as an insect bite turned naturally draining abscess. Denies having any I&D procedure. He was advised to follow up with Dr. Sauceda today, but the office called him, cancelled his appointment, and advised he come into the ED. Patient reports the wound is healing well with no pain or drainage, and notes he has been cleaning it twice a day. Otherwise, denies fever ad body aches. Of note, he says he completed his Clindamycin today with no complications. Past Medical History Reviewed: Historical Data, Nursing Documentation, Vital Signs Vital Signs: Last Vital Signs Temp 98.4 F 03/10/19 14:07 Pulse 94 H 03/10/19 15:02 Resp 16 03/10/19 14:07 BP 127/77 03/10/19 14:07 Pulse Ox 98 03/10/19 14:07 Primary Care Provider: FAMILY PROVIDER,NO - Medical History PMH: No Chronic Diseases Denies: HIV, Chronic Kidney Disease - Surgical History Surgical History: Appendectomy - Family History Family History: States: Unknown Family Hx - Social History Current smoker - smoking cessation education provided: No Alcohol: None Drugs: Denies - Immunization History Hx Tetanus Toxoid Vaccination: No Hx Influenza Vaccination: No Hx Pneumococcal Vaccination: No - Home Medications Home Medications: Ambulatory Orders Medication Instructions Recorded Bacitracin OINT 1 applic TOP DAILY #1 tube 03/02/19 Clindamycin [Cleocin] 300 mg PO BID #14 cap 03/02/19 Lactobacillus Acidophilus [Bacid 1 cap PO BID #14 cap 03/02/19 Acidophilus] - Allergies Allergies/Adverse Reactions: Allergies Allergy/AdvReac Type Severity Reaction Status Date / Time methylprednisolone Allergy Mild URTICARIA, Verified 03/10/19 14:06 [From Solu-Medrol] itchiness Review of Systems ROS Statement: Except As Marked, All Systems Reviewed And Found Negative Constitutional: Negative for: Fever, Other (body aches) Skin: Positive for: Other (healing abscess to right leg, no drainage) Physical Exam - Reviewed Nursing Documentation Reviewed: Yes Vital Signs Reviewed: Yes - Physical Exam Appears: Positive for: No Acute Distress Skin: Positive for: Normal Color, Warm Cardiovascular/Chest: Positive for: Regular Rate, Rhythm Respiratory: Positive for: Normal Breath Sounds. Negative for: Respiratory Distress Extremity: Positive for: Normal ROM (of right lower extremity), Other (well healed non-tender lesion on the right lateral leg with no surrounding erythema or edema, or palpable fluctuance / induration) Neurological/Psych: Positive for: Awake, Alert, Oriented (x3) - ECG O2 Sat by Pulse Oximetry: 98 (RA) Pulse Ox Interpretation: Normal Medical Decision Making Medical Decision Making: Time: 1453 Initial Impression: visit for wound check Initial Plan: --Patient with no complaints and a healing wound that shows no signs of infection. Patient stable for discharge with return parameters discussed and all questions answered. Scribe Attestation: Documented by Jaimee Stein, acting as a scribe for Carmelina Gupta PA-C Provider Scribe Attestation: All medical record entries made by the Scribe were at my direction and personally dictated by me. I have reviewed the chart and agree that the record accurately reflects my personal performance of the history, physical exam, medical decision making, and the department course for this patient. I have also personally directed, reviewed, and agree with the discharge instructions and disposition. Disposition - Clinical Impression Clinical Impression: Encounter for wound re-check - Disposition Referrals: John Sauceda MD [Staff Provider] - Disposition Time: 14:53 Condition: GOOD Instructions: Wound Care Forms: [email or web address] (Spanish)
--- NOTE | 2019-03-10 15:06 | ED PDOC ---
HPI: Wound Care - HPI Time Seen by Provider: 03/10/19 14:16 Chief Complaint (Nursing): Wound Check Past Medical History Vital Signs: Last Vital Signs Temp 98.4 F 03/10/19 14:07 Pulse 106 H 03/10/19 14:07 Resp 16 03/10/19 14:07 BP 127/77 03/10/19 14:07 Pulse Ox 98 03/10/19 14:07 Primary Care Provider: FAMILY PROVIDER,NO - Medical History PMH: Denies: HIV, Chronic Kidney Disease - Surgical History Surgical History: Appendectomy - Family History Family History: States: Unknown Family Hx - Immunization History Hx Tetanus Toxoid Vaccination: No Hx Influenza Vaccination: No Hx Pneumococcal Vaccination: No - Home Medications Home Medications: Ambulatory Orders Medication Instructions Recorded Bacitracin OINT 1 applic TOP DAILY #1 tube 03/02/19 Clindamycin [Cleocin] 300 mg PO BID #14 cap 03/02/19 Lactobacillus Acidophilus [Bacid 1 cap PO BID #14 cap 03/02/19 Acidophilus] - Allergies Allergies/Adverse Reactions: Allergies Allergy/AdvReac Type Severity Reaction Status Date / Time methylprednisolone Allergy Mild URTICARIA, Verified 03/10/19 14:06 [From Solu-Medrol] itchiness - ECG O2 Sat by Pulse Oximetry: 98 Disposition - Clinical Impression Clinical Impression: Encounter for wound re-check - Patient ED Disposition Is Patient to be Admitted: No Counseled Patient/Family Regarding: Diagnosis, Need For Followup - Disposition Referrals: John Sauceda MD [Staff Provider] - Disposition: Routine/Home Disposition Time: 14:53 Condition: GOOD Instructions: Wound Care
== END 2019-03-10 15:14 | disposition home or self-care (01) ==
LOC: H.ER 14:02
DX: Z48.00 Encounter for change or removal of nonsurgical wound dressing (principal)